=== PATIENT | male | born 1935 | race Caucasian/White ===

== ENCOUNTER 2020-12-22 09:22 | Inpatient (IN) ==
[2020-12-22] MEDS ORDERED: HYDROmorphone 0.5 MG/0.5 ML SYRINGE IV ONE ×2 (09:58→11:32)
[2020-12-22] MEDS ORDERED: 0.9 % SODIUM CHLORIDE 1,000 ML IV ONE (10:06)
--- NOTE | 2020-12-22 10:11 | Emergency Department Note ---
HPI General Chief complaint: Recheck/Abnormal Lab/Rx Stated complaint: nallely CRE and flank pain Time Seen by Provider: 12/22/20 09:56 Source: patient Mode of arrival: ambulatory Limitations: no limitations History of Present Illness HPI Narrative: Patient is an 85-year-old gentleman who arrives to the emergency department accompanied by his and daughter complaining of rib pain. The patient fell 2 days ago and landed on his right ribs. Ever since then, he has been having pain and tenderness over his right lower ribs. He did not think he suffered any significant injuries so he did not seek medical treatment at that time. Patient presented to outpatient surgery today for lithotripsy of a known left-sided kidney stone. Outpatient lab work revealed the patient to be in acute renal failure who is referred to the emergency department for further evaluation. He has been taking hydrocodone for treatment of his kidney stone pain with satisfactory pain control has not taken any [id number] analges ics to augment to this. He denies any fever or chills. Moving and taking a deep breath makes his right sided rib pain worse. Patient's history is somewhat limited due to his dementia Related Data Home Medications Medication Instructions Recorded Confirmed amlodipine 5 mg tablet 5 - 10 mg PO QDAY tab 10/22/19 12/22/20 cholecalciferol (vitamin D3) 50 50 mcg PO QDAY 10/22/19 12/22/20 mcg (2,000 unit) capsule clopidogrel 75 mg tablet 75 mg PO QDAY 10/22/19 12/22/20 coenzyme Q10 100 mg capsule 300 mg PO QDAY 10/22/19 12/22/20 gabapentin 100 mg capsule 300 mg PO TID 10/22/19 12/22/20 lorazepam 1 mg tablet 0.5 mg PO HS 10/22/19 12/22/20 memantine 10 mg tablet 10 mg PO BID 10/22/19 12/22/20 metoprolol tartrate 50 mg tablet 50 mg PO BID 10/22/19 12/22/20 rosuvastatin 10 mg tablet 40 mg PO HS 10/22/19 12/22/20 sertraline 50 mg tablet 50 mg PO QDAY 10/22/19 12/22/20 vitamin A-vitamin C-vit E-min 1 tab PO .COMPLEX 10/22/19 12/22/20 tablet acetaminophen [Acetaminophen Extra 1,000 mg PO Q6H PRN 12/20/20 12/22/20 Strength] aspirin 81 mg PO QDAY 12/20/20 12/22/20 donepezil 10 mg PO QDAY 12/20/20 12/22/20 isosorbide mononitrate 30 mg PO QAM 12/20/20 12/22/20 nitroglycerin 0.4 mg SUBLINGUAL Q5M PRN 12/20/20 12/22/20 lisinopril 5 mg PO DAILY 12/22/20 12/22/20 Allergies Allergy/AdvReac Type Severity Reaction Status Date / Time morphine Allergy Intermediate gi upset Verified 12/20/20 14:46 Review of Systems ROS ROS Narrative: Narrative: Limitations: ROS unobtainable due to patients medical condition [facility] Narrative Patient History Narrative: Narrative: Medical/Surgical/Family History All Active Problems (Updated 12/22/20 @ 14:58 by Matt Bird DO) Acute renal failure (Acute) Essential (primary) hypertension (Acute) Dementia (Acute) Right kidney stone (Acute) History of coronary artery disease (Acute) 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) Stage 3 acute kidney injury (Acute) Calculus of kidney (Acute) Senile dementia (Acute) Hypertension (Chronic) Heart disease (Chronic) Radiculopathy, lumbar region (Chronic) Low back pain (Chronic) Spinal stenosis, 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, 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, 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, lumbosacral region (Chronic) Medical History Calculus of kidney Degenerative disc disease, lumbar Facet arthropathy Heart disease Hypertension Low back pain Radiculopathy, lumbar region Senile dementia Spinal stenosis, lumbar region with neurogenic claudication Spondylosis without myelopathy or radiculopathy, lumbar region Spondylosis without myelopathy or radiculopathy, lumbosacral region Surgical History History of surgery RFTC Repeat Bilat L3-S1 w/sed 09/07/19 RFTC Bilat L3-S1 w/sed 07/23/2018 MBB #2 Bilat L3-S1 w/sed 06/25/2018 MBB #1 Bilat L3-S1 w/sed 05/22/2018 LESI #1 L4-5 w/o sed 01/08/2018 LESI #2 L4-5 w/o sed 09/24/2017 LESI #1 L4-5 w/o sed 04/25/2017 LESI #2 L4-5 w/o sed 10/08/2016 LESI #1 L4-5 w/o sed 05/16/2016 LESI #2 L4-5 w/o sed 12/13/2015 LESI #1 L4-5 w/o sed 08/25/2015 LESI #2 L4-5 w/o sed 03/01/2015 LESI #1 L4-5 w/o sed 01/13/15 Family History Other HTN (hypertension) Heart attack Kidney stone Social History Smoking Status: Former smoker Alcohol Intake Frequency: does not drink Substance Use: does not use Exam Narrative Narrative: Gen -patient is awake and alert and in no acute distress. HEENT -head is atraumatic. There is no conjunctival pallor or scleral icterus. CV -S1-S2 regular rate and rhythm. Peripheral pulses are palpable. Resp -breathing is nonlabored. Lungs are clear to auscultation bilaterally. There is no cyanosis. GI - Abdomen is soft and exquisitely tender to palpation in the right upper quadrant. There is no guarding or rebound tenderness. Derm -skin is warm and dry. MSK -present extremities are atraumatic. Psych -patient has appropriate affect. Neuro -patient answers questions appropriately with fluent speech. He provides simple and slightly confused but generally appropriate answers to questions patient moves all present extremities equally. General Limitations: no limitations Course Vital Signs Vital signs: Vital Signs Temperature 97.8 F 12/22/20 09:23 Pulse Rate 66 12/22/20 09:23 Respiratory Rate 16 12/22/20 09:23 Blood Pressure 145/71 12/22/20 09:23 Pulse Oximetry (%) 95 12/22/20 09:23 Temperature 97.8 F 12/22/20 09:23 Pulse Rate 86 12/22/20 13:21 Respiratory Rate 16 06/03/21 09:23 Blood Pressure 145/84 12/22/20 13:21 Pulse Oximetry (%) 97 12/22/20 13:21 MDM MDM Narrative Medical decision making narrative: Patient presents with acute renal failure complaining of right-sided lower rib pain following a fall. Labs remarkable for normal potassium and he has good respiratory status I do not think he would benefit from emergent hemodialysis. The recent trauma and rib pain obtain a CT scan that does not show any significant pathologic findings other than the known left-sided ureteral calculus. I discussed the test results and the need for admission and further monitoring of renal function with the patient and his family and they are agreeable. I discussed the patient's history examination and diagnostic findings with Dr. Renee from urology. He agrees with the plan for admission to hospitalist and also does not think that obstruction is the primary cause of the patient's renal failure. I discussed the patient's history examination and diagnostic findings with Dr. Johnson, who agrees with the plan of care and accepts admission. Critical care time I provided at least 15 minutes of critical care time. This was separate from any separately billable procedures. The patient was given IV fluids to treat his acute renal failure. The patient was closely monitored for response to treatment and stability of vital signs throughout their emergency department stay. Lab Data Labs: Lab Results 12/22/20 Range/Units 10:22 Urine Color Yellow Urine Appearance Hazy A (Clear) Urine pH 6.0 (5.0-9.0) Ur Specific [place] 1.011 (1.000-1.035) Urine Protein 30 A (Negative) mg/dL Urine Glucose (UA) Negative (Negative) mg/dL Urine Ketones Negative (Negative) mg/dL Urine Occult Blood 0.03 (Negative) mg/dL Urine Nitrate Negative (Negative) Urine Bilirubin Negative (Negative) mg/dL Urine Urobilinogen Negative mg/dL Ur Leukocyte Esterase Negative (Negative) /ug Urine RBC < 1 (0-3) /hpf Urine WBC 3 (0-4) /hpf Ur Squamous Epith Cells < 1 (0-4) /hpf Ur Transition Epith Cell < 1 (0-2) /hpf Urine Bacteria Few A (0) /hpf Urine Mucus Few A (None) /hpf Ur Culture Indicated? Yes ED POC Tests ED POC Tests: NISH - SARS Antigen Negative Discharge Plan Patient/Caregiver Discharge Instructions Pt seen by COMPUTER SYSTEMS SECURITY ANALYST/PA only: No Clinical Impression: Acute renal failure Patient Disposition: Xfer As Inpt ([facility]) Condition: Fair Follow up with: Karthik De Leno DO [Primary Care Provider] - Prescriptions: No Action amlodipine 5 mg tablet 5 - 10 mg PO QDAY RF: 0 clopidogrel 75 mg tablet 75 mg PO QDAY RF: 0 coenzyme Q10 [CoQ-10] 100 mg capsule 300 mg PO QDAY RF: 0 gabapentin 100 mg capsule 300 mg PO TID RF: 0 lorazepam 1 mg tablet 0.5 mg PO HS RF: 0 memantine 10 mg tablet 10 mg PO BID RF: 0 metoprolol tartrate 50 mg tablet 50 mg PO BID RF: 0 vitamin A-vitamin C-vit E-min Tablet 1 tab PO .COMPLEX RF: 0 rosuvastatin 10 mg tablet 40 mg PO HS RF: 0 sertraline 50 mg tablet 50 mg PO QDAY RF: 0 cholecalciferol (vitamin D3) 50 mcg (2,000 unit) capsule 50 mcg PO QDAY RF: 0 donepezil 10 mg Tablet 10 mg PO QDAY RF: 0 isosorbide mononitrate 30 mg Tablet Extended Release 24 Hr 30 mg PO QAM RF: 0 acetaminophen [Acetaminophen Extra Strength] 500 mg Tablet 1,000 mg PO Q6H PRN (Reason: Pain) RF: 0 nitroglycerin 0.4 mg Tablet, Sublingual 0.4 mg SUBLINGUAL Q5M PRN (Reason: Angina) RF: 0 aspirin 81 mg Tablet 81 mg PO QDAY RF: 0 lisinopril 5 mg tablet 5 mg PO DAILY RF: 0
--- NOTE | 2020-12-22 11:06 | Cat Scan Report ---
INDICATION: fall, right lower rib pain COMPARISON: None. TECHNIQUE: Axial images were obtained through the chest,abdomen and pelvis. Sagittally and coronally reformatted images. Intravenous contrast material was not administered FINDINGS: Chest CT: Lungs:Bilateral pulmonary parenchymal density most consistent with atelectasis. There is mild left lower lobe infiltrate which may be atelectasis or pneumonia. Mediastinum:No mediastinal hematoma. There is calcification of the thoracic aorta. No significant aortic dilatation. Heart:No significant cardiomegaly. No pericardial effusion. Severe coronary artery calcification. Previous coronary artery bypass procedure Pleura:There is no pneumothorax or hemothorax Axilla, supraclavicular regions, chest wall:No chest wall hematoma. No acute or focal abnormality. Musculoskeletal:No thoracic compression fracture. No rib fracture. Scapula and clavicles are negative. Sternum is negative except for previous sternotomy Abdomen/Pelvis: Liver:Liver is negative to the limits of noncontrast enhanced examination. No evidence for laceration. There are 2 low density lesions. There is a 2.4 cm low-density lesion in the left lobe of the liver. There is a 1.5 cm low-density lesion near the gallbladder fossa. These may be benign cysts. Clinical correlation recommended for history of primary malignancy. Gallbladder, bilary:No calcified gallstones. No gallbladder wall thickening or pericholecystic fluid. No dilated bile ducts Spleen:Spleen is negative. No splenic injury. No perisplenic hemorrhage. Pancreas:No pancreatic mass. No peripancreatic abnormality. No retroperitoneal abnormality Adrenal glands:15 mm left adrenal nodule, unchanged Kidneys, ureters, bladder:Right kidney is negative to the limits of noncontrast enhanced examination. No right hydronephrosis. No obstructing or nonobstructing calculi. No perinephric abnormality. There is a 7 mm calculus in the right renal pelvis. There is mild infiltration of surrounding fat. Infection is possible. There is no significant hydronephrosis. There is a 3.7 cm left upper pole mass consistent with cyst. There is a 2 cm exophytic mid pole mass consistent with cyst. No perinephric abnormality. No evidence for traumatic renal injury. Left kidney is unchanged There is no hydroureter. No bladder stone. No evidence for bladder rupture. Gastrointestinal: No detectable colonic mass. There is prominent fecal material in the rectum and distal sigmoid colon. There is no diverticulitis Small bowel is negative. No mechanical small bowel obstruction. Stomach and duodenum are within normal limits Appendix: The appendix is negative Vascular:There is extensive calcification of the abdominal aorta. No abdominal aortic aneurysm. There is a left renal stent. There is calcification at the origins of the celiac trunk and superior mesenteric artery. Lymphatic:No pathologic retroperitoneal or mesenteric adenopathy Mesentery, peritoneum:No free intraperitoneal fluid. No intra-abdominal abscess. There is no hemoperitoneum or pneumoperitoneum Reproductive:Prostate is not enlarged. There is a probable TURP defect Musculoskeletal:Compression deformity of the L3 vertebral body. This is unchanged since 12/16/2020. Sacrum and pelvis are negative. Hips are negative. No anterior abdominal wall or inguinal hernia. IMPRESSION: 1. Bilateral lower lobe pulmonary parenchymal densities may represent atelectasis although an left insular pneumonia is possible 2. Severe coronary artery calcification. Previous coronary artery bypass procedure 3. Low density lesions within the liver. These are unchanged since 12/16/2020 4. Small left adrenal nodule is stable 5. 7 mm calculus in the right renal pelvis. No significant hydronephrosis. This is unchanged. Probable left renal cysts, unchanged 6. Compression deformity of the L3 vertebral body, stable The exam was performed using radiation dose optimization techniques including, but not limited to, automated exposure control, adjustment of the mA and/or kV according to patient size and use of iterative reconstruction technique. Interpreted and Authenticated by: Rick Forte 12/22/20
[2020-12-22 11:21] LABS: Appearance,Urine HAZY (Clear); Bacteria,Urine FEW /hpf (0); Bilirubin,Urine Negative (Negative); Color,Urine YELLOW; Culture Indicated,Urine Yes; Glucose,Urine (UA) Negative (Negative); Ketones,Urine Negative (Negative); Leukocyte Esterase,Urine Negative /ug (Negative); Mucus,Urine FEW /hpf; Nitrate,Urine Negative (Negative); Protein,Urine 30 mg/dL (Negative); Specific Gravity,Urine 1.011 (1.000-1.035); Urine Blood 0.03 mg/dL (Negative); Urine RBC < 1 /hpf (0-3); Urine Squamous Epithelial Cell < 1 /hpf (0-4); Urine Transitional Epi Cells < 1 /hpf (0-2); Urine WBC 3 /hpf (0-4); Urobilinogen,Urine Negative
[2020-12-22] MEDS ORDERED: ACETAMINOPHEN 500 MG TABLET PO PRN (13:43)
[2020-12-22] MEDS ORDERED: oxyCODONE HCL 5 MG TABLET PO PRN (13:53)
[2020-12-22] MEDS ORDERED: morphine 4 MG/ML VIAL IV PRN (13:53)
[2020-12-22] MEDS ORDERED: ACETAMINOPHEN 325 MG TABLET PO PRN (13:53)
[2020-12-22] MEDS ORDERED: traZODone HCL 50 MG TABLET PO PRN ×2 (13:53→15:04)
[2020-12-22] MEDS ORDERED: ONDANSETRON 4 MG/2 ML VIAL IV PRN ×2 (13:53→15:04)
[2020-12-22] MEDS ORDERED: 0.9 % SODIUM CHLORIDE 1,000 ML IV SCH (14:00)
[2020-12-22] MEDS ORDERED: 0.9 % SODIUM CHLORIDE 10 ML SYRINGE IV SCH (14:00)
[2020-12-22] MEDS ORDERED: NITROGLYCERIN 0.4 MG TAB.SUBL SL PRN ×3 (14:08→19:27)
--- NOTE | 2020-12-22 14:10 | Internal Med History&Physical ---
HPI History of Present Illness Patient information: Note initiated : 12/22/20 at 2:02 pm Service Date, if different from initiated Date: [] Patient: Justin Simmons a 85 y/o M admitted on for High CRE, Flank Pain. Chief Complaint: [acute kidney injury] History of present illness: Mr. Simmons is a 85 year old M history of CAD status post CABG, chronic kidney disease stage IV, advanced dementia, presenting with acute kidney injury with elevated serum creatinine level. Patient baseline serum creatinine level was 2.3 a week ago but today it is 6.5. He was recently been diagnosed with an nonobstructive right kidney stone measuring 7 mm in diameter. He is scheduled to be seen by urologist and have lithotripsy procedures to have the stone removed but as part of the preoperative evaluations he was Found to have elevated serum creatinine level. As a result, the planned lithotripsy procedure was postponed and patient was instead asked to come to the ED for further evaluation and treatment. CT of the abdomen pelvis again showing diagnostic aspect if nature of the left kidney stone. UA suggests against the presence of urinary tract infections. Patient is not septic. Patient is complaining of the right lower rib cage pain secondary to a fall that happened 2 to 3 days ago. No rib fractures was identified. Constitutional Constitutional: Absent chills, excessive sweating, fatigue, fever(s) and weakness EENT Eyes: Absent blurry vision, change in vision, loss of vision and other visual disturbances Ears: Absent decreased hearing and tinnitus Nose, mouth and throat: Absent abnormal hearing, dry mouth, headache(s), nasal congestion and sore throat Cardiovascular Cardiovascular: Absent chest pain, chest pain at rest, edema, irregular heart rhythm and palpatations Respiratory Respiratory: Absent cough, dyspnea and wheezing Gastrointestinal Gastrointestinal: Absent abdominal pain, constipation, diarrhea, nausea and vomiting Musculoskeletal Musculoskeletal: Absent back pain, deformity, limited range of motion, muscle cramps, muscle weakness and numbness Additional comments: Right lower rib cage pain Integumentary Integumentary: Absent lesions, rash and wounds Neurological Neurological: Absent focal weakness, headache(s) and numbness Psychiatric Psychiatric: Absent anxiety, depression and hallucinations PFSH PFSH All Active Problems (Updated 12/22/20 @ 14:09 by Jas Johnson MD) Essential (primary) hypertension (Acute) Dementia (Acute) Right kidney stone (Acute) History of coronary artery disease (Acute) 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) Stage 3 acute kidney injury (Acute) Calculus of kidney (Acute) Senile dementia (Acute) Hypertension (Chronic) Heart disease (Chronic) Radiculopathy, lumbar region (Chronic) Low back pain (Chronic) Spinal stenosis, 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, 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, 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, lumbosacral region (Chronic) Medical History Calculus of kidney Degenerative disc disease, lumbar Facet arthropathy Heart disease Hypertension Low back pain Radiculopathy, lumbar region Senile dementia Spinal stenosis, lumbar region with neurogenic claudication Spondylosis without myelopathy or radiculopathy, lumbar region Spondylosis without myelopathy or radiculopathy, lumbosacral region Surgical History History of surgery RFTC Repeat Bilat L3-S1 w/sed 09/07/19 RFTC Bilat L3-S1 w/sed 07/23/2018 MBB #2 Bilat L3-S1 w/sed 06/25/2018 MBB #1 Bilat L3-S1 w/sed 05/22/2018 LESI #1 L4-5 w/o sed 01/08/2018 LESI #2 L4-5 w/o sed 09/24/2017 LESI #1 L4-5 w/o sed 04/25/2017 LESI #2 L4-5 w/o sed 10/08/2016 LESI #1 L4-5 w/o sed 05/16/2016 LESI #2 L4-5 w/o sed 12/13/2015 LESI #1 L4-5 w/o sed 08/25/2015 LESI #2 L4-5 w/o sed 03/01/2015 LESI #1 L4-5 w/o sed 01/13/15 Family History Other HTN (hypertension) Heart attack Kidney stone Social History smoking status: Former smoker alcohol intake frequency: does not drink substance use type: does not use MEDS/ALLERGIES Home Medications and Allergies Home Medications Medication Instructions Recorded Confirmed Type amlodipine 5 mg tablet 5 - 10 mg PO QDAY tab 10/22/19 12/22/20 History cholecalciferol (vitamin D3) 50 50 mcg PO QDAY 10/22/19 12/22/20 History mcg (2,000 unit) capsule clopidogrel 75 mg tablet 75 mg PO QDAY 10/22/19 12/22/20 History coenzyme Q10 100 mg capsule 300 mg PO QDAY 10/22/19 12/22/20 History gabapentin 100 mg capsule 300 mg PO TID 10/22/19 12/22/20 History lorazepam 1 mg tablet 0.5 mg PO HS 10/22/19 12/22/20 History memantine 10 mg tablet 10 mg PO BID 10/22/19 12/22/20 History metoprolol tartrate 50 mg tablet 50 mg PO BID 10/22/19 12/22/20 History rosuvastatin 10 mg tablet 40 mg PO HS 10/22/19 12/22/20 History sertraline 50 mg tablet 50 mg PO QDAY 10/22/19 12/22/20 History vitamin A-vitamin C-vit E-min 1 tab PO .COMPLEX 10/22/19 12/22/20 History tablet acetaminophen [Acetaminophen Extra 1,000 mg PO Q6H PRN 12/20/20 12/22/20 History Strength] aspirin 81 mg PO QDAY 12/20/20 12/22/20 History donepezil 10 mg PO QDAY 12/20/20 12/22/20 History isosorbide mononitrate 30 mg PO QAM 12/20/20 12/22/20 History nitroglycerin 0.4 mg SUBLINGUAL Q5M PRN 12/20/20 12/22/20 History lisinopril 5 mg PO DAILY 12/22/20 12/22/20 History Allergies Allergy/AdvReac Type Severity Reaction Status Date / Time morphine Allergy Intermediate gi upset Verified 12/20/20 14:46 EXAM Constitutional Vitals: Temp Pulse Resp BP Pulse Ox 36.6 C 86 16 145/84 97 12/22/20 09:23 12/22/20 13:21 12/22/20 09:23 12/22/20 13:21 12/22/20 13:21 General appearance: cooperative and no acute distress Head Head exam: Present atraumatic and normocephalic Eye Eye exam: Present EOMI and PERRL ENT ENT exam: Present mucous membranes moist, normal exam and normal external ear exam Neck Neck exam: Present normal inspection; Absent lymphadenopathy, tenderness and thyromegaly Respiratory Respiratory exam: Absent accessory muscle use, respiratory distress and wheezes Additional comments: right rib cage pain Cardiovascular Cardiovascular exam: Present normal rate and rhythm; Absent JVD GI/Abdominal GI/Abdominal exam: Present normal bowel sounds and soft; Absent organomegaly and tenderness Rectal Rectal exam: Present deferred Extremities Exam Extremities exam: Present full ROM, normal capillary refill and normal inspection; Absent tenderness Neurological Exam Neurological exam: Present alert and CN II-XII intact; Absent motor sensory deficit Additional comments: orientation X1 to person only Psychiatric Psychiatric exam: Present normal affect and normal mood; Absent anxious and depressed Skin Skin exam: Present dry and intact DATA Data Completed and Pending Labs: Labs from last 24 hours 12/22/20 10:22 Urine Color Yellow Urine Appearance Hazy A Urine pH 6.0 Ur Specific [place] 1.011 Urine Protein 30 A Urine Glucose (UA) Negative Urine Ketones Negative Urine Occult Blood 0.03 Urine Nitrate Negative Urine Bilirubin Negative Urine Urobilinogen Negative Ur Leukocyte Esterase Negative Urine RBC < 1 Urine WBC 3 Ur Squamous Epith Cells < 1 Ur Transition Epith Cell < 1 Urine Bacteria Few A Urine Mucus Few A Ur Culture Indicated? Yes A/P Assessment and plan (1) Stage 3 acute kidney injury: Status: Acute (2) CKD stage 4 secondary to hypertension: Status: Acute (3) History of coronary artery disease: Status: Acute (4) Right kidney stone: Status: Acute (5) Dementia: Status: Acute (6) Essential (primary) hypertension: Status: Acute Narrative A/P Narrative: 1. Stage 3 acute kidney injury with chronic kidney injury stage IV associated with essential HTN: Admit to inpatient med surg telemetry Consult gavino Prado. appreciated CT abdomen pelvis does not suggestive of kidney stone obstruction (such as hydroureter or hydronphrosis) UA does not suggest any UTI Avoid nephrotoxic agents such as ADY-i Lisinopril NS@150cc/hr Repeat CMP in the morning Continue Norvasc and Lopressor 2. Nonobstructive right kidney stone: Postpone lithotripsy procedure until CAMILO resolves 3. Advanced dementia: Continue Memantine Continue Donepezil 4. h/o CAD s/p CABG: Continue Aspirin Continue Plavix Continue Imdur Continue Lopressor Continue Crestor GI ppx: not currently indicated DVT ppx: SCDs Code status: Full Prognosis: guarded Disposition: inpatient med surg telemetry Time Spent With Patient Time: Total time spent is greater than 50% in coordination of care (as documented) at patient's floor/unit and/or counseling patient: Total time spent with greater than 50% in coordination of care (as documented) at patient's floor/unit and/or counseling patient:: 25 - 35 minutes
[2020-12-22] MEDS ORDERED: GABAPENTIN 300 MG CAPSULE PO SCH (15:00)
[2020-12-22] MEDS ORDERED: HYDROmorphone 0.5 MG/0.5 ML SYRINGE IV PRN (15:04)
[2020-12-22] MEDS: 0.9 % SODIUM CHLORIDE 1,000 ML IV SCH ×3 (16:03→22:57)
--- NOTE | 2020-12-22 17:37 | Nephrology Consult Note ---
HPI Data of Consult Primary Care Provider: Karthik De Leon Consult Narrative Patient Information: Note initiated : 12/22/20 at 5:33 pm Service Date, if different from initiated Date: [] Patient: Justin Simmons 85 y/o M admitted on 12/22/20 for High CRE, Flank Pain. 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 He was found to have a nonobstructing kidney stone and plans for for elective lithotripsy and stent deployment. Preop labs showed a marked elevation in his serum creatinine from a baseline of around 2-6, procedure was canceled and he was sent to the ER for evaluation and admission. No documented hypotension, but he has been on an ADY inhibitor as of late. Most importantly on 11/16/2020 he underwent left heart cath and PCI at [facility]. This included a radial artery approach, mention of an LV gram, and claimant to the OM 2 saphenous vein graft, or 80% stenoses in the LAD but a patent RIOS graft to the LAD. Also 80% to the first OM branch but again a patent saphenous vein graft. Recommendations were for lifelong Plavix aspirin statin and beta- blockers. There did not appear to be any contrast-induced ATN. Risk of atheroembolic embolization was minimized by the radial artery approach. A CT scan today did not show any evidence of hydronephrosis or obstruction. Need to make sure the patient was not exposed to any nonsteroidals as he is already on a low-dose of lisinopril. Renal ultrasound from [facility] in October 2018 revealed bilaterally echogenic kidneys simple left renal cysts and no hydronephrosis. Laboratory Tests 12/22/20 10:22 Urine Appearance Hazy A Urine pH 6.0 Ur Specific [place] 1.011 Urine Protein 30 A Urine Glucose (UA) Negative Urine Ketones Negative Urine Occult Blood 0.03 Urine Nitrate Negative Urine Bilirubin Negative Urine Urobilinogen Negative Ur Leukocyte Esterase Negative Urine RBC < 1 Urine WBC 3 Ur Squamous Epith Cells < 1 Ur Transition Epith Cell < 1 Urine Bacteria Few A Urine Mucus Few A 12/22/20 08:20 WBC 6.9 Hgb 10.5 L Hct 31.0 L Plt Count 186 Eos % (Auto) 0.3 12/20/20 12/22/20 15:10 08:20 POC Sodium 144 POC Potassium 4.1 POC Chloride 112 H POC Total CO2 20 L POC BUN 50 H Creatinine 6.0 H* POC Creatinine 6.5 H* POC Glucose 110 H 12/23/20 12/23/20 12/23/20 04:44 04:44 04:44 Urine Eosinophils TNP Ur Random Creatinine 28.2 L 28.7 L U Random Total Protein 82 Ur Random Sodium 100 Ur Random Potassium 12.9 Ur Random Chloride 91 Ur Random Uric Acid 12.0 Ur Random Calcium 3.5 Calcium/Creat Ratio 0.[address] 12/22/2020 Adrenal glands:15 mm left adrenal nodule, unchanged Kidneys, ureters, bladder:Right kidney is negative to the limits of noncontrast enhanced examination. No right hydronephrosis. No obstructing or nonobstructing calculi. No perinephric abnormality. There is a 7 mm calculus in the right renal pelvis. There is mild infiltration of surrounding fat. Infection is possible. There is no significant hydronephrosis. There is a 3.7 cm left upper pole mass consistent with cyst. There is a 2 cm exophytic mid pole mass consistent with cyst. No perinephric abnormality. No evidence for traumatic renal injury. Left kidney is unchanged There is no hydroureter. No bladder stone. No evidence for bladder rupture. Excerpt from CT on 12/16/2020: Kidneys, ureters, bladder:There is bilateral renal atrophy. There are 2 masses in the left kidney. Upper pole mass measures 3.1 cm. Mid pole mass measures 1.6 cm and is exophytic. These are probably cysts. There is a 6 mm calculus at the left ureteropelvic junction. There is mild left hydronephrosis. There is no hydroureter. No bladder stone Records from [facility] Vital Signs Temp Pulse Pulse Resp BP BP Pulse Ox 12/22/20 15:37 36.4 C 75 18 167/68 97 12/22/20 15:03 36.6 C 86 16 145/84 97 12/22/20 13:21 86 145/84 97 12/22/20 13:16 119 H 145/84 96 12/22/20 13:02 62 132/83 94 12/22/20 12:47 64 134/70 96 12/22/20 12:32 62 132/61 96 12/22/20 12:17 65 139/60 90 12/22/20 12:02 151/69 12/22/20 11:47 26 L 135/62 95 12/22/20 11:32 67 129/51 97 12/22/20 11:17 125/47 12/22/20 11:02 66 114/53 95 12/22/20 11:00 63 96 12/22/20 10:47 62 137/58 95 12/22/20 10:38 64 138/53 96 12/22/20 10:02 64 136/69 96 12/22/20 09:47 63 148/53 96 12/22/20 09:39 64 149/67 96 12/22/20 09:23 36.6 C 66 16 145/71 95 Intake and Output 12/22/20 12/22/20 12/22/20 05:59 13:59 21:59 Intake Total 1000 240 Output Total 300 Balance 1000 -60 Intake: IV 1000 Sodium Chloride 0.9% 1,000 ml @ 1000 Wide Open IV BOLUS ONE Rx#: [id number] Oral 240 Output: Void Amount 300 Other: Meal Dinner Percent of Meal Consumed 100% Weight 85.275 kg 85.275 kg Review of Systems ROS unobtainable: due to mental status Review of systems: C/O right back pain but stone looks like its on the left Not much to add to ROS that's not in the HPI Except he does not know and I cannot reach to ask about NSAIDS PFSH PFSH All Active Problems (Updated 12/23/20 @ 07:20 by Anand Nixon MD) Renal failure (ARF), acute on chronic (Acute) Left renal stone (Acute) 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) CAD (coronary artery disease) of bypass graft (Acute) Dementia (Acute) 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, 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, lumbar region (Chronic) Facet arthropathy (Chronic) Degenerative disc disease, lumbar (Chronic) Spinal stenosis, lumbar region with neurogenic claudication (Chronic) Low back pain (Chronic) Radiculopathy, lumbar region (Chronic) Heart disease (Chronic) Hypertension (Chronic) Senile dementia (Acute) Calculus of kidney (Acute) Stage 3 acute kidney injury (Acute) History of coronary artery disease (Acute) Right kidney stone (Acute) Essential (primary) hypertension (Acute) Acute renal failure (Acute) Medical History Calculus of kidney Degenerative disc disease, lumbar Facet arthropathy Heart disease Hypertension Low back pain Radiculopathy, lumbar region Senile dementia Spinal stenosis, lumbar region with neurogenic claudication Spondylosis without myelopathy or radiculopathy, lumbar region Spondylosis without myelopathy or radiculopathy, lumbosacral region Surgical History History of surgery RFTC Repeat Bilat L3-S1 w/sed 09/07/19 RFTC Bilat L3-S1 w/sed 07/23/2018 MBB #2 Bilat L3-S1 w/sed 06/25/2018 MBB #1 Bilat L3-S1 w/sed 05/22/2018 LESI #1 L4-5 w/o sed 01/08/2018 LESI #2 L4-5 w/o sed 09/24/2017 LESI #1 L4-5 w/o sed 04/25/2017 LESI #2 L4-5 w/o sed 10/08/2016 LESI #1 L4-5 w/o sed 05/16/2016 LESI #2 L4-5 w/o sed 12/13/2015 LESI #1 L4-5 w/o sed 08/25/2015 LESI #2 L4-5 w/o sed 03/01/2015 LESI #1 L4-5 w/o sed 01/13/15 Family History Other HTN (hypertension) Heart attack Kidney stone Social History smoking status: Former smoker alcohol intake frequency: does not drink substance use type: does not use MEDS/ALLERGIES Home Medications and Allergies Home Medications Medication Instructions Recorded Confirmed Type amlodipine 5 mg tablet 5 - 10 mg PO QDAY tab 10/22/19 12/22/20 History cholecalciferol (vitamin D3) 50 50 mcg PO QDAY 10/22/19 12/22/20 History mcg (2,000 unit) capsule clopidogrel 75 mg tablet 75 mg PO QDAY 10/22/19 12/22/20 History coenzyme Q10 100 mg capsule 300 mg PO QDAY 10/22/19 12/22/20 History gabapentin 100 mg capsule 300 mg PO TID 10/22/19 12/22/20 History lorazepam 1 mg tablet 0.5 mg PO HS 10/22/19 12/22/20 History memantine 10 mg tablet 10 mg PO BID 10/22/19 12/22/20 History metoprolol tartrate 50 mg tablet 50 mg PO BID 10/22/19 12/22/20 History rosuvastatin 10 mg tablet 40 mg PO HS 10/22/19 12/22/20 History sertraline 50 mg tablet 50 mg PO QDAY 10/22/19 12/22/20 History vitamin A-vitamin C-vit E-min 1 tab PO .COMPLEX 10/22/19 12/22/20 History tablet acetaminophen [Acetaminophen Extra 1,000 mg PO Q6H PRN 12/20/20 12/22/20 History Strength] aspirin 81 mg PO QDAY 12/20/20 12/22/20 History donepezil 10 mg PO QDAY 12/20/20 12/22/20 History isosorbide mononitrate 30 mg PO QAM 12/20/20 12/22/20 History nitroglycerin 0.4 mg SUBLINGUAL Q5M PRN 12/20/20 12/22/20 History lisinopril 5 mg PO DAILY 12/22/20 12/22/20 History Allergies Allergy/AdvReac Type Severity Reaction Status Date / Time morphine Allergy Intermediate gi upset Verified 12/20/20 14:46 Physical Examination Vital Signs Vital signs: Temp Pulse Resp BP Pulse Ox 36.4 C 75 18 167/68 97 12/22/20 15:37 12/22/20 15:37 12/22/20 15:37 12/22/20 15:37 12/22/20 15:37 General Appearance General appearance: obese, moderate distress, chronically ill and frail EENT EENT: ATNC, PERRL and hearing intact (bilateral hearing aids) Neck Neck: no JVD and no carotid bruit Respiratory Respiratory: kyphosis and rhonchi Cardiovascular Cardiology: no murmurs, no gallops, edema (trace), regular rhythm, rapid rhythm (8 beat mikey of wide complex tachycardia while I was seeing him...no sx), normal S1 and normal S2 Gastrointestinal Gastrointestinal: normoactive bowel sounds, no guarding and obese Integumentary Integumentary: warm and dry and hyperkeratosis Neurologic Neurologic: no focal deficit, no asterixis and CN 3-12 intact Musculoskeletal Musculoskeletal: no erythema, no cyanosis, no clubbing and prevertebral tenderness Psychiatric Psychiatric: mood/affect appropriate Additional Exam Additional exam: No atheroembolic lesions in toes or fingers Results Lab Results Result Diagrams: 12/23/20 05:36 12/23/20 05:36 A/P Assessment and plan (1) CKD stage 4 secondary to hypertension: Status: Acute Comment: CKD 4 due to HTN and vascular disease. Non-nephrotic proteinuria. Baseline SCr ~2.0 Left renal artery stent is present (2) Renal failure (ARF), acute on chronic: Status: Acute Comment: Tolerated LHC and IV contrast procedure 11/16/2020 at [facility] w/o change in GFR In late Apr, 2019 had an episode of acute renal failure with peak creatinine of 5.5 mg/dL that improved with hydration while hospitalized at [facility]. Current episode of acute renal failure has occurred over the span of 6 days with serum creatinine going from 1.9 to 6.0 mg/dL. Qualifiers: Acute renal failure type: unspecified Chronic kidney disease stage: stage 4 (severe) Qualified Code(s): N17.9 - Acute kidney failure, unspecified; N18.4 - Chronic kidney disease, stage 4 (severe) (3) Left renal stone: Status: Acute Comment: I do not see a right renal stone, just left stone with mild hydro Needs urologic intervention (4) Hypertensive renovascular disease: Status: Acute Comment: Left ANTON with stent Calcification of vasculature (5) CAD (coronary artery disease) of bypass graft: Status: Acute Comment: Recent PCI and VADIM in SVG at [facility] Qualifiers: [place] vs. transplanted heart: [place] heart Associated angina: unspecified whether angina present Qualified Code(s): I25.810 - Atherosclerosis of coronary artery bypass graft(s) without angina pectoris (6) Dementia: Status: Acute Comment: Hold aricept while we adjust B-mati dose due to risk of bradycardia Qualifiers: Dementia type: vascular dementia Dementia behavioral disturbance: without behavioral disturbance Qualified Code(s): F01.50 - Vascular dementia without behavioral disturbance Narrative A/P Narrative: 1. This is not IV contrast associated ATN. 2. Ultimately this is a combination of dehydration (similar to the episode in April 2019) worsened by ADY inhibitor therapy. 3. 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 CT scan or more appropriately would be to have the radiologist correct the CT interpretation. 5. Recommend proceeding with left ureteral stent placement to relieve the obstruction and continue hydration in this patient 6. He avoid any RAASI therapy, his lisinopril has already been discontinued, and do not attempt to get this patient on nonsteroidal anti-inflammatory 7. Speak to the any nonsteroidal use at home as he is too demented to give a history that can be relied upon, additionally CODE STATUS needs to be addressed Time Spent With Patient Time: Total time spent is greater than 50% in coordination of care (as documented) at patient's floor/unit and/or counseling patient: Total time spent with greater than 50% in coordination of care (as documented) at patient's floor/unit and/or counseling patient:: Greater than 35 minutes (60 min)
[2020-12-22] MEDS: oxyCODONE HCL 5 MG TABLET PO PRN (17:57)
[2020-12-22] MEDS: GABAPENTIN 300 MG CAPSULE PO SCH (20:53)
[2020-12-22] MEDS: LORazepam 0.5 MG TABLET PO SCH (20:53)
[2020-12-22] MEDS: MEMANTINE 10 MG TABLET PO SCH (20:53)
[2020-12-22] MEDS: DOCUSATE SODIUM 100 MG CAPSULE PO SCH (20:53)
[2020-12-22] MEDS: SENNOSIDES 1 TABLET PO SCH (20:53)
[2020-12-22] MEDS: ATORVASTATIN 40 MG TABLET PO SCH (20:53)
[2020-12-22] MEDS: METOPROLOL TARTRATE 50 MG TABLET PO SCH (20:54)
[2020-12-22] MEDS ORDERED: MEMANTINE 10 MG TABLET PO SCH (21:00)
[2020-12-22] MEDS ORDERED: amLODIPine 5 MG TABLET PO SCH (21:00)
[2020-12-22] MEDS ORDERED: DOCUSATE SODIUM 100 MG CAPSULE PO SCH (21:00)
[2020-12-22] MEDS ORDERED: SENNOSIDES 1 TABLET PO SCH (21:00)
[2020-12-22] MEDS ORDERED: ROSUVASTATIN 10 MG TABLET PO SCH (21:00)
[2020-12-22] MEDS ORDERED: METOPROLOL TARTRATE 50 MG TABLET PO SCH (21:00)
[2020-12-22] MEDS ORDERED: LORazepam 0.5 MG TABLET PO SCH (21:00)
[2020-12-22] MEDS: 0.9 % SODIUM CHLORIDE 10 ML SYRINGE IV SCH (22:57)
[2020-12-23] MEDS: 0.9 % SODIUM CHLORIDE 1,000 ML IV SCH ×3 (05:31→19:03)
[2020-12-23] MEDS: 0.9 % SODIUM CHLORIDE 10 ML SYRINGE IV SCH ×3 (05:32→23:11)
[2020-12-23 06:02] LABS: Chloride,Urine Random 91 mmol/L (110-250); Potassium,Urine Random 12.9 mmol/L
[2020-12-23 06:03] LABS: Sodium, Urine Random 100 mmol/L
[2020-12-23 06:12] LABS: Calcium,Urine Random 3.5 mg/dL; Calcium/Creatinine Ratio,Urine 0.12 mg/mg (0.00-0.20); Creatinine,Urine Random 28.2 mg/dL (39.0-259.0)
[2020-12-23 07:31] LABS: Basophils # (Auto) 0.01 K/mcL (0.00-0.20); Basophils % (Auto) 0.1 % (0.0-2.0); Eosinophils # (Auto) 0.01 K/mcL (0.00-0.70); Eosinophils % (Auto) 0.1 % (0.0-7.0); Hematocrit 33.7 % (41.0-55.0); Lymphocytes # (Auto) 0.94 K/mcL (1.50-4.80); Lymphocytes % (Auto) 11.8 % (15.0-49.0); Mean Cell Volume 107.7 fL (80.0-100.0); Mean Corpuscular HGB Conc 32.6 g/dL (31.0-36.0); Mean Platelet Volume 10.1 fL (7.4-10.4); Monocytes # (Auto) 0.78 K/mcL (0.10-0.90); Monocytes % (Auto) 9.8 % (1.0-12.0); Neutrophils % (Auto) 78.2 % (38.0-78.0); Platelet Count 191 K/mcL (140-440); RBC 3.13 M/mcL (4.50-5.90)
--- NOTE | 2020-12-23 07:58 | General Surgery Consult Note ---
HPI Data of Consult Primary Care Provider: Karthik De Leon Consult Narrative Patient Information: Note initiated : 12/23/20 at 7:50 am Service Date, if different from initiated Date: [] Patient: Justin Simmons 85 y/o M admitted on 12/22/20 for High CRE, Flank Pain. Chief Complaint: [] This 85-year-old white male with dementia, hypertension and COPD was found to have a nonobstructing stone in the right kidney which apparently was asymptomatic. He was scheduled for ureteroscopic laser lithotripsy on December 22. On his admitting paperwork his creatinine had gone from the usual range from 1-3 up to 6 on December 20 and on December 22 the creatinine was 6.5 with a potassium of 3.9. He did not appear to be in any discomfort at the time. With a nonobstructing stone that was asymptomatic and a rapidly rising creatinine, the procedure was canceled and he was admitted for renal evaluation. Since there is no obstruction and no apparent discomfort, the stone may be something that would best be dealt with initially by observation only. We can continue to follow the stone size on KUB and proceed with intervention should he become symptomatic or if the stone continues to grow. 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, lumbar (Chronic) Spinal stenosis, lumbar region with neurogenic claudication (Chronic) Low back pain (Chronic) Radiculopathy, lumbar region (Chronic) Heart disease (Chronic) Hypertension (Chronic) Senile dementia (Acute) Calculus of kidney (Acute) Stage 3 acute kidney injury (Acute) 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) History of coronary artery disease (Acute) Right kidney stone (Acute) Dementia (Acute) Essential (primary) hypertension (Acute) Acute renal failure (Acute) Renal failure (ARF), acute on chronic (Acute) Left renal stone (Acute) Hypertensive renovascular disease (Acute) CAD (coronary artery disease) of bypass graft (Acute) Medical History Calculus of kidney Degenerative disc disease, lumbar Facet arthropathy Heart disease Hypertension Low back pain Radiculopathy, lumbar region Senile dementia Spinal stenosis, lumbar region with neurogenic claudication Spondylosis without myelopathy or radiculopathy, lumbar region Spondylosis without myelopathy or radiculopathy, lumbosacral region Surgical History History of surgery RFTC Repeat Bilat L3-S1 w/sed 09/07/19 RFTC Bilat L3-S1 w/sed 07/23/2018 MBB #2 Bilat L3-S1 w/sed 06/25/2018 MBB #1 Bilat L3-S1 w/sed 05/22/2018 LESI #1 L4-5 w/o sed 01/08/2018 LESI #2 L4-5 w/o sed 09/24/2017 LESI #1 L4-5 w/o sed 04/25/2017 LESI #2 L4-5 w/o sed 10/08/2016 LESI #1 L4-5 w/o sed 05/16/2016 LESI #2 L4-5 w/o sed 12/13/2015 LESI #1 L4-5 w/o sed 08/25/2015 LESI #2 L4-5 w/o sed 03/01/2015 LESI #1 L4-5 w/o sed 01/13/15 Family History Other HTN (hypertension) Heart attack Kidney stone Social History smoking status: Former smoker alcohol intake frequency: does not drink substance use type: does not use MEDS/ALLERGIES Home Medications and Allergies Home Medications Medication Instructions Recorded Confirmed Type amlodipine 5 mg tablet 5 - 10 mg PO QDAY tab 10/22/19 12/22/20 History cholecalciferol (vitamin D3) 50 50 mcg PO QDAY 10/22/19 12/22/20 History mcg (2,000 unit) capsule clopidogrel 75 mg tablet 75 mg PO QDAY 10/22/19 12/22/20 History coenzyme Q10 100 mg capsule 300 mg PO QDAY 10/22/19 12/22/20 History gabapentin 100 mg capsule 300 mg PO TID 10/22/19 12/22/20 History lorazepam 1 mg tablet 0.5 mg PO HS 10/22/19 12/22/20 History memantine 10 mg tablet 10 mg PO BID 10/22/19 12/22/20 History metoprolol tartrate 50 mg tablet 50 mg PO BID 10/22/19 12/22/20 History rosuvastatin 10 mg tablet 40 mg PO HS 10/22/19 12/22/20 History sertraline 50 mg tablet 50 mg PO QDAY 10/22/19 12/22/20 History vitamin A-vitamin C-vit E-min 1 tab PO .COMPLEX 10/22/19 12/22/20 History tablet acetaminophen [Acetaminophen Extra 1,000 mg PO Q6H PRN 12/20/20 12/22/20 History Strength] aspirin 81 mg PO QDAY 12/20/20 12/22/20 History donepezil 10 mg PO QDAY 12/20/20 12/22/20 History isosorbide mononitrate 30 mg PO QAM 12/20/20 12/22/20 History nitroglycerin 0.4 mg SUBLINGUAL Q5M PRN 12/20/20 12/22/20 History lisinopril 5 mg PO DAILY 12/22/20 12/22/20 History Allergies Allergy/AdvReac Type Severity Reaction Status Date / Time morphine Allergy Intermediate gi upset Verified 12/20/20 14:46 Physical Examination Vital Signs Vital signs: Temp Pulse Resp BP Pulse Ox 97.7 F 68 16 173/83 94 12/23/20 06:42 12/23/20 06:42 12/23/20 06:42 12/23/20 06:42 12/23/20 06:42 General physical appearance General physical exam: no distress ENT ENT exam: normal pinna and normal nares Head Head exam IM: Present normocephalic Cardiovascular Cardiovascular exam IM: Present normal rate and rhythm Respiratory Respiratory exam: normal respiratory effort Abdomen Abdomen: Present soft Integumentary Integumentary: Present no rash Results Labs Result diagrams: 12/23/20 05:36 12/23/20 05:36 Labs: Abnormal lab results 12/22/20 12/22/20 12/23/20 Range/Units 10:22 19:52 02:40 RBC (4.50-5.90) M/mcL Hgb (13.5-16.5) g/dL Hct (41.0-55.0) % MCV (80.0-100.0) fL MCH (26.0-34.0) pg Neut % (Auto) (38.0-78.0) % Lymph % (Auto) (15.0-49.0) % Lymph # (Auto) (1.50-4.80) K/mcL Troponin T 0.04 H* 0.03 H (<0.03) ng/mL Urine Appearance Hazy A (Clear) Urine Protein 30 A (Negative) mg/dL Urine Bacteria Few A (0) /hpf Urine Mucus Few A (None) /hpf Ur Random Creatinine (39.0-259.0) mg/dL Ur Random Chloride (110-250) mmol/L Ur Random Uric Acid (37.0-92.0) mg/dL 12/23/20 12/23/20 12/23/20 Range/Units 04:44 04:44 04:44 RBC (4.50-5.90) M/mcL Hgb (13.5-16.5) g/dL Hct (41.0-55.0) % MCV (80.0-100.0) fL MCH (26.0-34.0) pg Neut % (Auto) (38.0-78.0) % Lymph % (Auto) (15.0-49.0) % Lymph # (Auto) (1.50-4.80) K/mcL Troponin T (<0.03) ng/mL Urine Appearance (Clear) Urine Protein (Negative) mg/dL Urine Bacteria (0) /hpf Urine Mucus (None) /hpf Ur Random Creatinine 28.2 L 28.7 L (39.0-259.0) mg/dL Ur Random Chloride 91 L (110-250) mmol/L Ur Random Uric Acid (37.0-92.0) mg/dL 12/23/20 12/23/20 Range/Units 04:44 05:36 RBC 3.13 L (4.50-5.90) M/mcL Hgb 11.0 L (13.5-16.5) g/dL Hct 33.7 L (41.0-55.0) % MCV 107.7 H (80.0-100.0) fL MCH 35.1 H (26.0-34.0) pg Neut % (Auto) 78.2 H (38.0-78.0) % Lymph % (Auto) 11.8 L (15.0-49.0) % Lymph # (Auto) 0.94 L (1.50-4.80) K/mcL Troponin T (<0.03) ng/mL Urine Appearance (Clear) Urine Protein (Negative) mg/dL Urine Bacteria (0) /hpf Urine Mucus (None) /hpf Ur Random Creatinine (39.0-259.0) mg/dL Ur Random Chloride (110-250) mmol/L Ur Random Uric Acid 12.0 L (37.0-92.0) mg/dL All other labs normal. A/P Assessment and plan (1) Right kidney stone: Status: Acute (2) Acute renal failure: Status: Acute Qualifiers: Acute renal failure type: unspecified Qualified Code(s): N17.9 - Acute kidney failure, unspecified Narrative A/P Narrative: Appreciate nephrology consult. We will delay definitive intervention of the stone until renal function stabilized and consider observation only if he remains asymptomatic without obstruction. Will follow up with KUB in the clinic within the next 2 to 4 weeks Time Spent With Patient Time: Total time spent is greater than 50% in coordination of care (as documented) at patient's floor/unit and/or counseling patient:
[2020-12-23 08:14] LABS: ALT/SGPT 10 U/L (<40); AST/SGOT 12 U/L (<40); Albumin 3.3 gm/dL (3.2-5.2); Albumin/Globulin Ratio 0.8 (1.0-2.3); Alkaline Phosphatase 51 U/L (39-117); Bilirubin,Total 0.2 mg/dL (0.1-1.0); Blood Urea Nitrogen 46 mg/dL (8-23); Calcium 8.6 mg/dL (8.6-10.4); Carbon Dioxide 17 mmol/L (22-30); Chloride 115 mmol/L (96-108); Globulin 4.1 gm/dL (2.2-3.7); Glomerular Filtration Rate 11; Glucose 108 mg/dL (70-105)
[2020-12-23] MEDS: METOPROLOL TARTRATE 50 MG TABLET PO SCH ×2 (08:14→20:25)
[2020-12-23] MEDS: VIT A,C & E/LUTEIN/MINERALS TABLET PO SCH (08:14)
[2020-12-23] MEDS: MEMANTINE 10 MG TABLET PO SCH ×2 (08:14→20:24)
[2020-12-23] MEDS: VITAMIN D3 1,000 UNIT TABLET PO SCH (08:14)
[2020-12-23] MEDS: GABAPENTIN 300 MG CAPSULE PO SCH ×3 (08:14→20:24)
[2020-12-23] MEDS: ISOSORBIDE MONONITRATE 30 MG TAB.XL.24H PO SCH (08:15)
[2020-12-23] MEDS: SERTRALINE 50 MG TABLET PO SCH (08:15)
[2020-12-23] MEDS: amLODIPine 10 MG TABLET PO SCH (08:15)
[2020-12-23] MEDS: ASPIRIN 81 MG TAB.CHEW PO SCH (08:15)
[2020-12-23] MEDS: DOCUSATE SODIUM 100 MG CAPSULE PO SCH ×2 (08:15→20:25)
[2020-12-23] MEDS: CLOPIDOGREL 75 MG TABLET PO SCH (08:15)
--- NOTE | 2020-12-23 08:42 | Nephrology Progress Note ---
SUBJECTIVE Subjective Patient information: Note initiated : 12/23/20 at 8:36 am Service Date, if different from initiated Date: [] Patient: Justin Simmons 85 y/o M admitted on 12/22/20 for High CRE, Flank Pain. Chief Complaint: [ARF superimposed on CKD 4] As outlined in yesterday's note this patient has a baseline creatinine of around 2 as recently as the end of November 2020. He complained of right back pain had a CT that showed a left UPJ kidney stone with mild obstruction on 12/17/2020. He was set up for stent deployment and laser treatment when his preoperative creatinine was now found to be 6 and he was admitted to the hospital. Added to the confusion a repeat CT scan done on 12/22/2020 now reported a right nonobstructing kidney stone and reported that the left kidney was essentially normal. A personal review of the radiographic findings would disagree with the radiology report I see a left ureteral stone with surrounding perinephric stranding and hydronephrosis as well as previous renal artery stenting of the left renal artery. The patient had an episode of acute renal failure that responded to just IV fluids back in April 2019 at [facility]. Furthermore he just underwent left heart catheter PCI deployment at the end of October 2020 again at [facility] no change in his GFR. At time he was started on an ADY inhibitor and now has a marked elevation in his serum creatinine. Patient is unable to participate in a meaningful history so I cannot tell if he is on nonsteroidals for his back pain is well and I was unable to reach his last night. Unless his ADY inhibitor was discontinued and IV hydration was started overnight. I have asked the radio logist this morning to relook at the most recent CT and addend his report if appropriate. Otherwise, one would have to suppose that previous seen left kidney stone had passed but again to my eye that does not appear to be the case. Vital Signs Temp Pulse Pulse Resp BP BP Pulse Ox 12/23/20 06:42 36.5 C 68 16 173/83 94 12/23/20 04:00 36.4 C 69 18 175/81 96 12/23/20 02:00 65 159/59 92 12/23/20 01:45 62 158/77 90 12/23/20 01:30 65 164/76 93 12/22/20 23:37 36.6 C 66 18 138/65 93 12/22/20 19:06 36.6 C 72 20 127/55 94 12/22/20 15:37 36.4 C 75 18 167/68 97 12/22/20 15:03 36.6 C 86 16 145/84 97 12/22/20 13:21 86 145/84 97 12/22/20 13:16 119 H 145/84 96 12/22/20 13:02 62 132/83 94 12/22/20 12:47 64 134/70 96 12/22/20 12:32 62 132/61 96 12/22/20 12:17 65 139/60 90 12/22/20 12:02 151/69 12/22/20 11:47 26 L 135/62 95 12/22/20 11:32 67 129/51 97 12/22/20 11:17 125/47 12/22/20 11:02 66 114/53 95 12/22/20 11:00 63 96 12/22/20 10:47 62 137/58 95 12/22/20 10:38 64 138/53 96 12/22/20 10:02 64 136/69 96 12/22/20 09:47 63 148/53 96 12/22/20 09:39 64 149/67 96 12/22/20 09:23 36.6 C 66 16 145/71 95 Intake and Output 12/22/20 12/23/20 12/23/20 21:59 05:59 13:59 Intake Total 240 2000 Output Total 300 1900 Balance -60 100 Intake: IV 2000 Sodium Chloride 0.9% 1,000 ml @ 2000 150 mls/hr IV .Q6H40M [facility] Rx#: [id number] Oral 240 Output: Urine Catheter Amount 1300 Void Amount 300 600 Other: Meal Dinner Percent of Meal Consumed 100% Urine Appearance Clear Urine Color Pale Weight 86.772 kg Laboratory Tests 12/23/20 05:36 Sodium 142 Potassium 5.2 H Chloride 115 H Carbon Dioxide 17 L Anion Gap 10.0 BUN 46 H Creatinine 4.5 H GFR Calculation 11 Glucose 108 H Calcium 8.6 AST 12 ALT 10 Alkaline Phosphatase 51 Albumin 3.3 Globulin 4.1 H Albumin/Globulin Ratio 0.8 L Films reviewed with urology. All made to CT to ask for relooked an addendum of the CT report dated 12/22/2020 Constitutional Vitals: Vital Signs Temp Pulse Resp BP Pulse Ox 36.5 C 68 16 173/83 94 12/23/20 06:42 12/23/20 06:42 12/23/20 06:42 12/23/20 06:42 12/23/20 06:42 Period Temp Pulse Resp BP Sys/Peña Pulse Ox Last 24 Hr 36.4 C-36.6 C 26-119 16-20 114-175/47-84 90-97 Intake and Output 12/22/20 12/23/20 12/23/20 21:59 05:59 13:59 Intake Total 240 2000 Output Total 300 1900 Balance -60 100 Weight 86.772 kg Intake & Output: Intake & Output 12/22/20 12/23/20 12/23/20 21:59 05:59 13:59 Intake Total 240 2000 Output Total 300 1900 Balance -60 100 Weight 86.772 kg Intake: IV 2000 Sodium Chloride 0.9% 1,000 ml @ 2000 150 mls/hr IV .Q6H40M [facility] Rx#: [id number] Oral 240 Output: Urine Catheter Amount 1300 Void Amount 300 600 Other: Meal Dinner Percent of Meal Consumed 100% Urine Appearance Clear Urine Color Pale General appearance: moderate distress and obese Exam: General Appearance General appearance: obese, moderate distress, chronically ill and frail EENT EENT: ATNC, PERRL and hearing intact (bilateral hearing aids) Neck Neck: no JVD and no carotid bruit Respiratory Respiratory: kyphosis and rhonchi Cardiovascular Cardiology: no murmurs, no gallops, edema (trace), regular rhythm, rapid rhythm (8 beat mikey of wide complex tachycardia while I was seeing him...no sx), normal S1 and normal S2 Gastrointestinal Gastrointestinal: normoactive bowel sounds, no guarding and obese Integumentary Integumentary: warm and dry and hyperkeratosis Neurologic Neurologic: no focal deficit, no asterixis and CN 3-12 intact Musculoskeletal Musculoskeletal: no erythema, no cyanosis, no clubbing and prevertebral tenderness Psychiatric Psychiatric: mood/affect appropriate Additional Exam Additional exam: No atheroembolic lesions in toes or fingers A/P Narrative A/P Narrative: Assessment and plan (1) CKD stage 4 secondary to hypertension: (2) Renal failure (ARF), acute on chronic: (3) Left renal stone: (4) Hypertensive renovascular disease: (5) 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 This is not IV contrast associated ATN. 2. Ultimately this is a combination of dehydration (similar to the episode in April 2019) worsened by ADY inhibitor therapy. 3. Patient has nephrolithiasis with left UPJ stone which was evident on the CT of 12/16/2020 and still present on the 12/22/2020 CT but the interpretation seems to be an error as I see no right sided stone 4. CT scan or more appropriately would be to have the radiologist correct the CT interpretation. 5. Recommend proceeding with left ureteral stent placement to relieve the obstruction and continue hydration in this patient 6. He is avoid any RAASI therapy, his lisinopril has already been discontinued, and do not attempt to get this patient on nonsteroidal anti-inflammatory 7. Speak to the to see if there has been any nonsteroidal use at home as he is too demented to give a history that can be relied upon, additionally CODE STATUS needs to be addressed 8. Since this patient had PTCA and VADIM deployment 1 month ago, I favor just placing a stent and keeping him on Plavix for 3 months total at which time we can do some sort of definitive treatment on his kidney stone while stopping the Plavix for a few days. Time Spent With Patient Time: Total time spent is greater than 50% in coordination of care (as documented) at patient's floor/unit and/or counseling patient: Time Spent With Patient Time: Total time spent is greater than 50% in coordination of care (as documented) at patient's floor/unit and/or counseling patient:
[2020-12-23] MEDS: TAMSULOSIN 0.4 MG CAPSULE PO SCH ×2 (08:52→20:24)
[2020-12-23] MEDS: oxyCODONE HCL 5 MG TABLET PO PRN ×3 (08:52→17:35)
[2020-12-23] MEDS ORDERED: CLOPIDOGREL 75 MG TABLET PO SCH (09:00)
[2020-12-23] MEDS ORDERED: ASPIRIN 81 MG TAB.CHEW PO SCH (09:00)
[2020-12-23] MEDS ORDERED: COENZYME Q10 300 MG PO SCH ×2 (09:00)
[2020-12-23] MEDS ORDERED: DONEPEZIL 10 MG TABLET PO SCH ×2 (09:00)
[2020-12-23] MEDS ORDERED: SERTRALINE 50 MG TABLET PO SCH (09:00)
[2020-12-23] MEDS ORDERED: VITAMIN D3 1,000 UNIT TABLET PO SCH (09:00)
[2020-12-23] MEDS ORDERED: ISOSORBIDE MONONITRATE 30 MG TAB.XL.24H PO SCH (09:00)
[2020-12-23] MEDS ORDERED: amLODIPine 5 MG TABLET PO SCH (09:00)
--- NOTE | 2020-12-23 12:57 | EKG ---
[facility] Test Date: 2020-12-22 Pat Name: Justin Simmons Department: [facility] Room: 112 Gender: Male [employer]: : [phone] Requested By: Jas Johnson Order Number: [id number] Reading MD: Ian Gordon M.D. Measurements Intervals [place] Rate: 71 P: 28 MD: 236 QRS: -44 QRSD: 106 T: 80 QT: 420 QTc: 457 Interpretive Statements SINUS RHYTHM MULTIFORM VENTRICULAR PREMATURE COMPLEXES FIRST DEGREE AV BLOCK PROBABLE LEFT ATRIAL ABNORMALITY LEFT ANTERIOR FASCICULAR BLOCK Since previous ECG of 12-20-2020, PVC's, LASB Electronically Signed On 12-23-2020 12:56:53 PDT by Ian Gordon M.D. /[facility] [place]/[email or web address]/[id number]
--- NOTE | 2020-12-23 13:14 | Internal Med Progress Note ---
SUBJECTIVE Subjective Patient information: Note initiated : 12/23/20 at 1:09 pm Service Date, if different from initiated Date: [] Patient: Justin Simmons a 85 y/o M admitted on 12/22/20 for High CRE, Flank Pain. Chief Complaint: [] History of present illness: Mr. Simmons is a 85 year old M history of CAD status post CABG, chronic kidney disease stage IV, advanced dementia, presenting with acute kidney injury with elevated serum creatinine level. Patient baseline serum creatinine level was 2.3 a week ago but today it is 6.5. He was recently been diagnosed with bilateral kidney stones (6mm diameter in left ureteropelvic junction, and 7mm diameter in right renal pelvis. He is scheduled to be seen by urologist and have lithotripsy procedures to have the stone removed but as part of the preoperative evaluations he was Found to have elevated serum creatinine level. As a result, the planned lithotripsy procedure was postponed and patient was instead asked to come to the ED for further evaluation and treatment. CT of the abdomen pelvis again showing those kidney stones. UA suggests against the presence of urinary tract infections. Patient is not septic. Patient is complaining of the right lower rib cage pain secondary to a fall that happened 2 to 3 days ago. No rib fractures was identified. Constitutional Vitals: Vital Signs Temp Pulse Resp BP Pulse Ox 36.7 C 59 L 18 142/69 95 12/23/20 12:00 12/23/20 12:00 12/23/20 12:00 12/23/20 12:00 12/23/20 12:00 Period Temp Pulse Resp BP Sys/Peña Pulse Ox Last 24 Hr 36.4 C-36.7 C 59-119 16-20 127-175/55-84 90-97 Intake and Output 12/22/20 12/23/20 12/23/20 21:59 05:59 13:59 Intake Total 240 1999 1320 Output Total 300 1900 Balance -60 100 1320 Weight 86.772 kg Intake & Output: Intake & Output 12/22/20 12/23/20 12/23/20 21:59 05:59 13:59 Intake Total 240 1999 1320 Output Total 300 1900 Balance -60 100 1320 Weight 86.772 kg Intake: IV 2000 1000 Sodium Chloride 0.9% 1,000 ml @ 2000 1000 150 mls/hr IV .Q6H40M [facility] Rx#: [id number] Oral 240 320 Output: Urine Catheter Amount 1300 Void Amount 300 600 Other: Meal Dinner Lunch Percent of Meal Consumed 100% 75% Urine Appearance Clear Urine Color Pale General appearance: cooperative and no acute distress Exam: General Appearance General appearance: obese, moderate distress, chronically ill and frail EENT EENT: ATNC, PERRL and hearing intact (bilateral hearing aids) Neck Neck: no JVD and no carotid bruit Respiratory Respiratory: kyphosis and rhonchi Cardiovascular Cardiology: no murmurs, no gallops, edema (trace), regular rhythm, rapid rhythm (8 beat mikey of wide complex tachycardia while I was seeing him...no sx), normal S1 and normal S2 Gastrointestinal Gastrointestinal: normoactive bowel sounds, no guarding and obese Integumentary Integumentary: warm and dry and hyperkeratosis Neurologic Neurologic: no focal deficit, no asterixis and CN 3-12 intact Musculoskeletal Musculoskeletal: no erythema, no cyanosis, no clubbing and prevertebral tenderness Psychiatric Psychiatric: mood/affect appropriate Additional Exam Additional exam: No atheroembolic lesions in toes or fingers Head Head exam: Present atraumatic and normocephalic Additional comments: Bilateral hard of hearing Eye Eye exam: Present EOMI and PERRL ENT ENT exam: Present mucous membranes moist, normal exam and normal external ear exam Neck Neck exam: Present normal inspection; Absent lymphadenopathy, tenderness and thyromegaly Respiratory Respiratory exam: Absent accessory muscle use, respiratory distress and wheezes Cardiovascular Cardiovascular exam: Present normal rate and rhythm; Absent JVD GI/Abdominal GI/Abdominal exam: Present normal bowel sounds and soft; Absent organomegaly and tenderness Rectal Rectal exam: Present deferred Extremities Exam Extremities exam: Present full ROM, normal capillary refill and normal inspection; Absent tenderness Neurological Exam Neurological exam: Present alert, CN II-XII intact and oriented X3; Absent motor sensory deficit Psychiatric Psychiatric exam: Present normal affect and normal mood; Absent anxious and depressed Skin Skin exam: Present dry and intact OBJ DATA Labs CBC & Chem 7: 12/23/20 05:36 12/23/20 05:36 Labs: Abnormal Lab Results 12/23/20 12/23/20 12/23/20 08:20 05:36 05:36 RBC 3.13 L Hgb 11.0 L Hct 33.7 L MCV 107.7 H MCH 35.1 H Neut % (Auto) 78.2 H Lymph % (Auto) 11.8 L Lymph # (Auto) 0.94 L Potassium 5.2 H Chloride 115 H Carbon Dioxide 17 L BUN 46 H Creatinine 4.5 H Glucose 108 H Troponin T 0.03 H Globulin 4.1 H Albumin/Globulin Ratio 0.8 L Urine Appearance Urine Protein Urine Bacteria Urine Mucus Ur Random Creatinine Ur Random Chloride Ur Random Uric Acid 12/23/20 12/23/20 12/23/20 04:44 04:44 04:44 RBC Hgb Hct MCV MCH Neut % (Auto) Lymph % (Auto) Lymph # (Auto) Potassium Chloride Carbon Dioxide BUN Creatinine Glucose Troponin T Globulin Albumin/Globulin Ratio Urine Appearance Urine Protein Urine Bacteria Urine Mucus Ur Random Creatinine 28.7 L Ur Random Chloride 91 L Ur Random Uric Acid 12.0 L 12/23/20 12/23/20 12/22/20 04:44 02:40 19:52 RBC Hgb Hct MCV MCH Neut % (Auto) Lymph % (Auto) Lymph # (Auto) Potassium Chloride Carbon Dioxide BUN Creatinine Glucose Troponin T 0.03 H 0.04 H* Globulin Albumin/Globulin Ratio Urine Appearance Urine Protein Urine Bacteria Urine Mucus Ur Random Creatinine 28.2 L Ur Random Chloride Ur Random Uric Acid 12/22/20 10:22 RBC Hgb Hct MCV MCH Neut % (Auto) Lymph % (Auto) Lymph # (Auto) Potassium Chloride Carbon Dioxide BUN Creatinine Glucose Troponin T Globulin Albumin/Globulin Ratio Urine Appearance Hazy A Urine Protein 30 A Urine Bacteria Few A Urine Mucus Few A Ur Random Creatinine Ur Random Chloride Ur Random Uric Acid Meds: Medications Acetaminophen (Acetaminophen 325 Mg Tablet) 650 mg PO Q6HP PRN; Protocol PRN Reason: Per Pain Protocol/Fever > 101 Amlodipine Besylate (Amlodipine 5 Mg Tablet) 5 mg PO [facility] Amlodipine Besylate (Amlodipine 10 Mg Tablet) 10 mg PO DAILY [facility] Last Admin: 12/23/20 08:15 Dose: 10 mg Documented by: Aspirin (Aspirin 81 Mg Tab.Chew) 81 mg PO DAILY [facility] Last Admin: 12/23/20 08:15 Dose: 81 mg Documented by: Atorvastatin Calcium (Atorvastatin 40 Mg Tablet) 40 mg PO [facility] Last Admin: 12/22/20 20:53 Dose: 40 mg Documented by: Clopidogrel Bisulfate (Clopidogrel 75 Mg Tablet) 75 mg PO QDAY [facility] Last Admin: 12/23/20 08:15 Dose: 75 mg Documented by: Docusate Sodium (Docusate Sodium 100 Mg Capsule) 100 mg PO BID [facility] Last Admin: 12/23/20 08:15 Dose: 100 mg Documented by: Gabapentin (Gabapentin 300 Mg Capsule) 300 mg PO TID [facility] Last Admin: 12/23/20 08:14 Dose: 300 mg Documented by: Hydromorphone HCl (Hydromorphone 0.5 Mg/0.5 Ml Syringe) 0.5 mg IV Q4HP PRN; Protocol PRN Reason: Per Pain Protocol Last Admin: 12/23/20 01:25 Dose: 0.5 mg Documented by: Sodium Chloride (Sodium Chloride 0.9%) 1,000 mls @ 150 mls/hr IV .Q6H40M [facility] Last Admin: 12/23/20 12:31 Dose: 150 mls/hr Documented by: Isosorbide Mononitrate (Isosorbide Mononitrate 30 Mg Tab.Xl.24h) 30 mg PO QAM [facility] Last Admin: 12/23/20 08:15 Dose: 30 mg Documented by: Lorazepam (Lorazepam 0.5 Mg Tablet) 0.5 mg PO HS [facility] Last Admin: 12/22/20 20:53 Dose: 0.5 mg Documented by: Memantine (Memantine 10 Mg Tablet) 10 mg PO BID [facility] Last Admin: 12/23/20 08:14 Dose: 10 mg Documented by: Metoprolol Tartrate (Metoprolol Tartrate 50 Mg Tablet) 50 mg PO BID [facility] Last Admin: 12/23/20 08:14 Dose: 50 mg Documented by: Multivitamins/Minerals (Vit A,C & E/Lutein/Minerals Tablet) 1 tab PO DAILY [facility] Last Admin: 12/23/20 08:14 Dose: 1 tab Documented by: Nitroglycerin (Nitroglycerin 0.4 Mg Tab.Subl) 0.4 mg SL Q5M PRN PRN Reason: Chest Pain Last Admin: 12/23/20 01:00 Dose: 0.4 mg Documented by: Ondansetron HCl (Ondansetron 4 Mg/2 Ml Vial) 4 mg IV Q6HP PRN PRN Reason: Nausea And Vomiting Oxycodone HCl (Oxycodone Hcl 5 Mg Tablet) 10 mg PO Q4HP PRN; Protocol PRN Reason: Per Pain Protocol Last Admin: 12/23/20 12:31 Dose: 10 mg Documented by: Senna (Sennosides 1 Tablet) 2 tab PO HS [facility] Last Admin: 12/22/20 20:53 Dose: 2 tab Documented by: Sertraline HCl (Sertraline 50 Mg Tablet) 50 mg PO QDAY [facility] Last Admin: 12/23/20 08:15 Dose: 50 mg Documented by: Sodium Chloride (0.9 % Sodium Chloride 10 Ml Syringe) 10 ml IV Q8 [facility] Last Admin: 12/23/20 12:32 Dose: Not Given Documented by: Tamsulosin HCl (Tamsulosin 0.4 Mg Capsule) 0.4 mg PO BID [facility] Last Admin: 12/23/20 08:52 Dose: 0.4 mg Documented by: Trazodone HCl (Trazodone Hcl 50 Mg Tablet) 25 mg PO HSP PRN PRN Reason: Insomnia Vitamin D (Vitamin D3 1,000 Unit Tablet) 2,000 unit PO DAILY [facility] Last Admin: 12/23/20 08:14 Dose: 2,000 unit Documented by: A/P Assessment and plan (1) Stage 3 acute kidney injury: Status: Acute (2) CKD stage 4 secondary to hypertension: Status: Acute Comment: CKD 4 due to HTN and vascular disease. Non-nephrotic proteinuria. Baseline SCr ~2.0 Left renal artery stent is present (3) History of coronary artery disease: Status: Acute (4) Right kidney stone: Status: Acute (5) Dementia: Status: Acute Comment: Hold aricept while we adjust B-mati dose due to risk of bradycardia Qualifiers: Dementia type: vascular dementia Dementia behavioral disturbance: without behavioral disturbance Qualified Code(s): F01.50 - Vascular dementia without behavioral disturbance (6) Essential (primary) hypertension: Status: Acute Narrative A/P Narrative: 1. Stage 3 acute kidney injury with chronic kidney injury stage IV associated with essential HTN: Stays in inpatient med surg telemetry Consult agvino Prado. appreciated CT abdomen pelvis does not suggestive of kidney stone obstruction (such as hydroureter or hydronephrosis) UA does not suggest any UTI Avoid nephrotoxic agents such as ADY-i Lisinopril NS@150cc/hr Repeat CMP in the morning Continue Norvasc and Lopressor 2. Nonobstructive right kidney stone: Postpone lithotripsy procedure until CAMILO resolves 3. Advanced dementia: Continue Memantine Continue Donepezil 4. h/o CAD s/p CABG: Continue Aspirin Continue Plavix Continue Imdur Continue Lopressor Continue Crestor GI ppx: not currently indicated DVT ppx: SCDs Code status: Full Prognosis: stable Disposition: inpatient med surg telemetry Time Spent With Patient Time: Total time spent is greater than 50% in coordination of care (as documented) at patient's floor/unit and/or counseling patient:
--- NOTE | 2020-12-23 15:29 | Ultrasound Report ---
INDICATION: ARF on ADY with lots of Ca++ vessels / ? ANTON TECHNIQUE: Routine duplex examination of the renal arteries COMPARISON: Previous CT scan dated 12/22/2020 FINDINGS: Right kidney measures 11.8 x 5.2 x 5.0 cm. No solid or cystic mass. No hydronephrosis. Left kidney measures 11.7 x 4.8 x 4.6 cm. There are 2 left renal cysts. No solid mass. Previous CT scan demonstrates a 7 mm calculus in the left renal pelvis. This is not identified on present examination. There is no hydronephrosis. No renal artery stenosis. No velocity elevation. Renal artery to aortic ratios are within normal limits. Resistive indices are abnormal. Resistive indices measure a maximum of 0.80 bilaterally. This may be secondary to medical renal disease. IMPRESSION: 1. No renal artery stenosis 2. Elevated resistive indices bilaterally Interpreted and Authenticated by: Rick oFrte 12/23/20
[2020-12-23] MEDS: SENNOSIDES 1 TABLET PO SCH (20:24)
[2020-12-23] MEDS: amLODIPine 5 MG TABLET PO SCH (20:25)
[2020-12-23] MEDS: ATORVASTATIN 40 MG TABLET PO SCH (20:25)
[2020-12-23] MEDS: LORazepam 0.5 MG TABLET PO SCH (20:25)
[2020-12-24] MEDS: 0.9 % SODIUM CHLORIDE 1,000 ML IV SCH ×4 (00:45→19:34)
[2020-12-24] MEDS: 0.9 % SODIUM CHLORIDE 10 ML SYRINGE IV SCH ×3 (05:54→21:12)
[2020-12-24] MEDS: GABAPENTIN 300 MG CAPSULE PO SCH ×3 (08:49→21:11)
[2020-12-24] MEDS: VIT A,C & E/LUTEIN/MINERALS TABLET PO SCH (08:49)
[2020-12-24] MEDS: VITAMIN D3 1,000 UNIT TABLET PO SCH (08:50)
[2020-12-24] MEDS: METOPROLOL TARTRATE 50 MG TABLET PO SCH ×2 (08:50→21:10)
[2020-12-24] MEDS: amLODIPine 10 MG TABLET PO SCH (08:50)
[2020-12-24] MEDS: SERTRALINE 50 MG TABLET PO SCH (08:50)
[2020-12-24] MEDS: ISOSORBIDE MONONITRATE 30 MG TAB.XL.24H PO SCH (08:51)
[2020-12-24] MEDS: CLOPIDOGREL 75 MG TABLET PO SCH (08:51)
[2020-12-24] MEDS: MEMANTINE 10 MG TABLET PO SCH ×2 (08:51→21:10)
[2020-12-24] MEDS: TAMSULOSIN 0.4 MG CAPSULE PO SCH ×2 (08:51→21:10)
[2020-12-24] MEDS: DOCUSATE SODIUM 100 MG CAPSULE PO SCH ×2 (08:51→21:11)
[2020-12-24] MEDS: ASPIRIN 81 MG TAB.CHEW PO SCH (08:52)
--- NOTE | 2020-12-24 10:18 | Nephrology Progress Note ---
SUBJECTIVE Subjective Patient information: Note initiated : 12/24/20 at 10:17 am Service Date, if different from initiated Date: [] Patient: Justin Simmons 85 y/o M admitted on 12/22/20 for High CRE, Flank Pain. Chief Complaint: [elevated pre-op creatinine] Baseline creatinine of around 2 as recently as the end of November 2020. He complained of right back pain had a CT that showed a left UPJ kidney stone with mild obstruction on 12/17/2020. He was set up for stent deployment and laser treatment when his preoperative creatinine was now found to be 6 and he was admitted to the hospital. Added to the confusion a repeat CT scan done on 12/22/2020 now reported a right nonobstructing kidney stone and reported that the left kidney was essentially normal. A personal review of the radiographic findings would disagree with the radiology report I see a left ureteral stone with surrounding perinephric stranding and hydronephrosis as well as previous renal artery stenting of the left renal artery. The patient had an episode of acute renal failure that responded to just IV fluids back in April 2019 at [facility]. Furthermore he just underwent left heart catheter PCI deployment at the end of October 2020 again at [facility] no change in his GFR. At time he was started on an ADY inhibitor and now has a marked elevation in his serum creatinine. Patient is unable to participate in a meaningful history so I cannot tell if he is on nonsteroidals for his back pain is well and I was unable to reach his last night. Unless his ADY inhibitor was discontinued and IV hydration was started overnight. I have asked the radiologist this morning to relook at the most recent CT and addend his report i f appropriate. Otherwise, one would have to suppose that previous seen left kidney stone had passed but again to my eye that does not appear to be the case. Renal U/S 12/23/2020: Right kidney measures 11.8 x 5.2 x 5.0 cm. No solid or cystic mass. No hydronephrosis. Left kidney measures 11.7 x 4.8 x 4.6 cm. There are 2 left renal cysts. No solid mass. Previous CT scan demonstrates a 7 mm calculus in the left renal pelvis. This is not identified on present examination. There is no hydronephrosis. No renal artery stenosis. No velocity elevation. Renal artery to aortic ratios are within normal limits. Resistive indices are abnormal. Resistive indices measure a maximum of 0.80 bilaterally. This may be secondary to medical renal disease. IMPRESSION: 1. No renal artery stenosis 2. Elevated resistive indices bilaterally Constitutional Vitals: Vital Signs Temp Pulse Resp BP Pulse Ox 36.3 C 57 L 16 152/70 93 12/24/20 07:38 12/24/20 07:38 12/24/20 07:38 12/24/20 07:38 12/24/20 07:38 Period Temp Pulse Resp BP Sys/Peña Pulse Ox Last 24 Hr 36.3 C-36.9 C 57-74 16-18 120-152/64-72 93-95 Intake and Output 12/23/20 12/24/20 12/24/20 21:59 05:59 13:59 Intake Total 2660 1400 Output Total 1500 1100 800 Balance 1160 300 -800 Weight 86.772 kg Intake & Output: Intake & Output 12/23/20 12/24/20 12/24/20 21:59 05:59 13:59 Intake Total 2660 1400 Output Total 1500 1100 800 Balance 1160 300 -800 Weight 86.772 kg Intake: IV 980 1000 Sodium Chloride 0.9% 1,000 ml @ 980 1000 150 mls/hr IV .Q6H40M [facility] Rx#: [id number] Oral 1680 400 Output: Urine Catheter Amount 1500 1100 800 Other: Meal Dinner Percent of Meal Consumed 100% Feeding Ability Independent Urine Appearance Clear Clear Uretheral (Thomason) Clear Clear Clear Urine Color Pale Pale Uretheral (Thomason) Pale Bright Yellow Bright Yellow Urine Odor Normal Stool Size Moderate Stool Color Brown Stool Consistency Normal for Patient General appearance: no acute distress and obese Exam: Exam: General Appearance General appearance: obese, moderate distress, chronically ill and frail EENT: ATNC, PERRL and hearing intact (bilateral hearing aids) Neck: no JVD and no carotid bruit Respiratory: kyphosis and rhonchi Cardiology: no murmurs, no gallops, edema (trace), regular rhythm, rapid rhythm (8 beat mikey of wide complex tachycardia while I was seeing him...no sx), normal S1 and normal S2 Gastrointestinal: normoactive bowel sounds, no guarding and obese : No CVAT Integumentary: warm and dry and hyperkeratosis Neurologic: no focal deficit, no asterixis and CN 3-12 intact Musculoskeletal: no erythema, no cyanosis, no clubbing (+) paraspinal back tenderness Psychiatric: mood/affect appropriate Additional exam: No atheroembolic lesions in toes or fingers A/P Narrative A/P Narrative: A/P Narrative A/P Narrative: Assessment and plan (1) CKD stage 4 secondary to hypertension: (2) Renal failure (ARF), acute on chronic: (3) Left renal stone: (4) Hypertensive renovascular disease: (5) CAD (coronary artery disease) of bypass graft: with recent PTCA and VADIM deployment 10/2020 at [facility] (6) Dementia: Vascular on Rx A/P Narrative: 1. This is not IV contrast associated ATN. 2. Ultimately this is a combination of dehydration (similar to the episode in April 2019) worsened by ADY inhibitor therapy. 3. Patient has nephrolithiasis with left UPJ stone which was evident on the CT of 12/16/2020 and still present on the 12/22/2020 CT but the interpretation seems to be an error as I see no right sided stone 4. CT scan or more appropriately would be to have the radiologist correct the CT interpretation. 5. Recommend proceeding with left ureteral stent placement to relieve the obstruction and continue hydration in this patient 6. He is avoid any RAASI therapy, his lisinopril has already been discontinued, and do not attempt to get this patient on nonsteroidal anti-inflammatory 7. Speak to the to see if there has been any nonsteroidal use at home as he is too demented to give a history that can be relied upon, additionally CODE STATUS needs to be addressed 8. Since this patient had PTCA and VADIM deployment 1 month ago, I favor just placing a stent and keeping him on Plavix for 3 months total at which time we can do some sort of definitive treatment on his kidney stone while stopping the Plavix for a few days. 9. Recheck GFR tomorrow. Time Spent With Patient Time: Total time spent is greater than 50% in coordination of care (as documented) at patient's floor/unit and/or counseling patient:
[2020-12-24 13:10] LABS: ALT/SGPT 9 U/L (<40); AST/SGOT 13 U/L (<40); Albumin 2.8 gm/dL (3.2-5.2); Albumin/Globulin Ratio 0.7 (1.0-2.3); Alkaline Phosphatase 43 U/L (39-117); Bilirubin,Direct < 0.2 mg/dL (0-0.3); Bilirubin,Total 0.2 mg/dL (0.1-1.0); Blood Urea Nitrogen 42 mg/dL (8-23); Calcium 8.3 mg/dL (8.6-10.4); Carbon Dioxide 17 mmol/L (22-30); Chloride 110 mmol/L (96-108); Globulin 3.9 gm/dL (2.2-3.7); Glomerular Filtration Rate 15; Glucose 83 mg/dL (70-105); Lactate Dehydrogenase 194 U/L (135-225); Phosphorous 3.9 mg/dL (2.5-4.5); Triglycerides 127 mg/dL (<150); Uric Acid 6.7 mg/dL (2.5-8.0)
--- NOTE | 2020-12-24 13:56 | Internal Med Progress Note ---
SUBJECTIVE Subjective Patient information: Note initiated : 12/24/20 at 1:54 pm Service Date, if different from initiated Date: [] Patient: Justin Simmons 85 y/o M admitted on 12/22/20 for High CRE, Flank Pain. Chief Complaint: [] Interval history: History of present illness: Mr. Simmons is a 85 year old M history of CAD status post CABG, chronic kidney disease stage IV, advanced dementia, presenting with acute kidney injury with elevated serum creatinine level. Patient baseline serum creatinine level was 2.3 a week ago but today it is 6.5. He was recently been diagnosed with bilateral kidney stones (6mm diameter in left ureteropelvic junction, and 7mm diameter in right renal pelvis. He is scheduled to be seen by urologist and have lithotripsy procedures to have the stone removed but as part of the preoperative evaluations he was Found to have elevated serum creatinine level. As a result, the planned lithotripsy procedure was postponed and patient was instead asked to come to the ED for further evaluation and treatment. CT of the abdomen pelvis again showing those kidney stones. UA suggests against the presence of urinary tract infections. Patient is not septic. Patient is complaining of the right lower rib cage pain secondary to a fall that happened 2 to 3 days ago. No rib fractures was identified. 12/24-patient clinically improving. Nephrology on board. Potassium down to 4.6, creatinine down to 3.5 from 4.5, bilateral nonobstructive renal stone on imaging. Restarted on home medication except for ADY inhibitor. Troponin unchanged. No other concerns expressed by nursing staff. Constitutional Vitals: Vital Signs Temp Pulse Resp BP Pulse Ox 97.5 F 58 L 16 147/68 94 12/24/20 11:48 12/24/20 11:48 12/24/20 11:48 12/24/20 11:48 12/24/20 11:48 Period Temp Pulse Resp BP Sys/Peña Pulse Ox Last 24 Hr 97.3 F-98.4 F 57-74 16-18 120-152/64-72 93-95 Intake and Output 12/23/20 12/24/20 12/24/20 21:59 05:59 13:59 Intake Total 2660 1400 1240 Output Total 1500 1100 1400 Balance 1160 300 -160 Weight 86.772 kg intermittently confused Nonlabored breathing No anxiety Intake & Output: Intake & Output 12/23/20 12/24/20 12/24/20 21:59 05:59 13:59 Intake Total 2660 1400 1240 Output Total 1500 1100 1400 Balance 1160 300 -160 Weight 86.772 kg Intake: IV 980 1000 1000 Sodium Chloride 0.9% 1,000 ml @ 980 1000 1000 150 mls/hr IV .Q6H40M [facility] Rx#: [id number] Oral 1680 400 240 Output: Urine Catheter Amount 1500 1100 1400 Other: Meal Dinner Breakfast Percent of Meal Consumed 100% Feeding Ability Independent Urine Appearance Clear Clear Uretheral (Thomason) Clear Clear Clear Urine Color Pale Pale Uretheral (Thomason) Pale Bright Yellow Bright Yellow Urine Odor Normal Stool Size Moderate Stool Color Brown Stool Consistency Normal for Patient # Voids 1 OBJ DATA Labs CBC & Chem 7: 12/23/20 05:36 12/24/20 11:35 Labs: Abnormal Lab Results 12/24/20 12/23/20 12/23/20 11:35 08:20 05:36 RBC Hgb Hct MCV MCH Neut % (Auto) Lymph % (Auto) Lymph # (Auto) Potassium 5.2 H Chloride 110 H 115 H Carbon Dioxide 17 L 17 L BUN 42 H 46 H Creatinine 3.5 H 4.5 H Glucose 108 H Calcium 8.3 L Troponin T 0.03 H Albumin 2.8 L Globulin 3.9 H 4.1 H Albumin/Globulin Ratio 0.7 L 0.8 L Urine Appearance Urine Protein Urine Bacteria Urine Mucus Ur Random Creatinine Ur Random Chloride Ur Random Uric Acid 12/23/20 12/23/20 12/23/20 05:36 04:44 04:44 RBC 3.13 L Hgb 11.0 L Hct 33.7 L MCV 107.7 H MCH 35.1 H Neut % (Auto) 78.2 H Lymph % (Auto) 11.8 L Lymph # (Auto) 0.94 L Potassium Chloride Carbon Dioxide BUN Creatinine Glucose Calcium Troponin T Albumin Globulin Albumin/Globulin Ratio Urine Appearance Urine Protein Urine Bacteria Urine Mucus Ur Random Creatinine Ur Random Chloride 91 L Ur Random Uric Acid 12.0 L 12/23/20 12/23/20 12/23/20 04:44 04:44 02:40 RBC Hgb Hct MCV MCH Neut % (Auto) Lymph % (Auto) Lymph # (Auto) Potassium Chloride Carbon Dioxide BUN Creatinine Glucose Calcium Troponin T 0.03 H Albumin Globulin Albumin/Globulin Ratio Urine Appearance Urine Protein Urine Bacteria Urine Mucus Ur Random Creatinine 28.7 L 28.2 L Ur Random Chloride Ur Random Uric Acid 12/22/20 12/22/20 19:52 10:22 RBC Hgb Hct MCV MCH Neut % (Auto) Lymph % (Auto) Lymph # (Auto) Potassium Chloride Carbon Dioxide BUN Creatinine Glucose Calcium Troponin T 0.04 H* Albumin Globulin Albumin/Globulin Ratio Urine Appearance Hazy A Urine Protein 30 A Urine Bacteria Few A Urine Mucus Few A Ur Random Creatinine Ur Random Chloride Ur Random Uric Acid Meds: Medications Acetaminophen (Acetaminophen 325 Mg Tablet) 650 mg PO Q6HP PRN; Protocol PRN Reason: Per Pain Protocol/Fever > 101 Amlodipine Besylate (Amlodipine 5 Mg Tablet) 5 mg PO [facility] Last Admin: 12/23/20 20:25 Dose: 5 mg Documented by: Amlodipine Besylate (Amlodipine 10 Mg Tablet) 10 mg PO DAILY [facility] Last Admin: 12/24/20 08:50 Dose: 10 mg Documented by: Aspirin (Aspirin 81 Mg Tab.Chew) 81 mg PO DAILY [facility] Last Admin: 12/24/20 08:52 Dose: 81 mg Documented by: Atorvastatin Calcium (Atorvastatin 40 Mg Tablet) 40 mg PO [facility] Last Admin: 12/23/20 20:25 Dose: 40 mg Documented by: Clopidogrel Bisulfate (Clopidogrel 75 Mg Tablet) 75 mg PO QDAY [facility] Last Admin: 12/24/20 08:51 Dose: 75 mg Documented by: Docusate Sodium (Docusate Sodium 100 Mg Capsule) 100 mg PO BID [facility] Last Admin: 12/24/20 08:51 Dose: 100 mg Documented by: Gabapentin (Gabapentin 300 Mg Capsule) 300 mg PO TID [facility] Last Admin: 12/24/20 08:49 Dose: 300 mg Documented by: Hydromorphone HCl (Hydromorphone 0.5 Mg/0.5 Ml Syringe) 0.5 mg IV Q4HP PRN; Protocol PRN Reason: Per Pain Protocol Last Admin: 12/23/20 01:25 Dose: 0.5 mg Documented by: Sodium Chloride (Sodium Chloride 0.9%) 1,000 mls @ 150 mls/hr IV .Q6H40M [facility] Last Admin: 12/24/20 13:02 Dose: 150 mls/hr Documented by: Isosorbide Mononitrate (Isosorbide Mononitrate 30 Mg Tab.Xl.24h) 30 mg PO QAM [facility] Last Admin: 12/24/20 08:51 Dose: 30 mg Documented by: Lorazepam (Lorazepam 0.5 Mg Tablet) 0.5 mg PO [facility] Last Admin: 12/23/20 20:25 Dose: 0.5 mg Documented by: Memantine (Memantine 10 Mg Tablet) 10 mg PO BID [facility] Last Admin: 12/24/20 08:51 Dose: 10 mg Documented by: Metoprolol Tartrate (Metoprolol Tartrate 50 Mg Tablet) 50 mg PO BID [facility] Last Admin: 12/24/20 08:50 Dose: 50 mg Documented by: Multivitamins/Minerals (Vit A,C & E/Lutein/Minerals Tablet) 1 tab PO DAILY [facility] Last Admin: 12/24/20 08:49 Dose: 1 tab Documented by: Nitroglycerin (Nitroglycerin 0.4 Mg Tab.Subl) 0.4 mg SL Q5M PRN PRN Reason: Chest Pain Last Admin: 12/23/20 01:00 Dose: 0.4 mg Documented by: Ondansetron HCl (Ondansetron 4 Mg/2 Ml Vial) 4 mg IV Q6HP PRN PRN Reason: Nausea And Vomiting Oxycodone HCl (Oxycodone Hcl 5 Mg Tablet) 10 mg PO Q4HP PRN; Protocol PRN Reason: Per Pain Protocol Last Admin: 12/23/20 17:35 Dose: 10 mg Documented by: Senna (Sennosides 1 Tablet) 2 tab PO [facility] Last Admin: 12/23/20 20:24 Dose: 2 tab Documented by: Sertraline HCl (Sertraline 50 Mg Tablet) 50 mg PO QDAY [facility] Last Admin: 12/24/20 08:50 Dose: 50 mg Documented by: Sodium Chloride (0.9 % Sodium Chloride 10 Ml Syringe) 10 ml IV Q8 [facility] Last Admin: 12/24/20 13:05 Dose: Not Given Documented by: Tamsulosin HCl (Tamsulosin 0.4 Mg Capsule) 0.4 mg PO BID [facility] Last Admin: 12/24/20 08:51 Dose: 0.4 mg Documented by: Trazodone HCl (Trazodone Hcl 50 Mg Tablet) 25 mg PO [facility] PRN PRN Reason: Insomnia Vitamin D (Vitamin D3 1,000 Unit Tablet) 2,000 unit PO DAILY [facility] Last Admin: 12/24/20 08:50 Dose: 2,000 unit Documented by: A/P Narrative A/P Narrative: * Acute on chronic kidney disease. Managed by nephrology. Creatinine downtrending from 4.5-3.5. ADY inhibitor is on hold. * Nonobstructive bilateral renal stone will follow up with Dr. Barrios as outpatient * History of dementia continue donepezil * History of CAD status post CABG continue aspirin/Plavix/Imdur/beta- mati/Crestor * Hypertension-Management per nephrology. * Anxiety disorder continue sertraline * Prophylaxis SCDs Plan * Renal failure management per nephrology * Other pre-existing medical condition management home medications * PT OT/nutrition support * Discharge planning Time Spent With Patient Time: Total time spent is greater than 50% in coordination of care (as documented) at patient's floor/unit and/or counseling patient:
[2020-12-24] MEDS: ACETAMINOPHEN 325 MG TABLET PO PRN (19:31)
[2020-12-24] MEDS: ATORVASTATIN 40 MG TABLET PO SCH (21:10)
[2020-12-24] MEDS: LORazepam 0.5 MG TABLET PO SCH (21:10)
[2020-12-24] MEDS: SENNOSIDES 1 TABLET PO SCH (21:10)
[2020-12-24] MEDS: amLODIPine 5 MG TABLET PO SCH (21:11)
[2020-12-24] MEDS: oxyCODONE HCL 5 MG TABLET PO PRN (23:56)
[2020-12-25] MEDS: 0.9 % SODIUM CHLORIDE 1,000 ML IV SCH ×3 (04:17→14:34)
[2020-12-25] MEDS: 0.9 % SODIUM CHLORIDE 10 ML SYRINGE IV SCH ×3 (04:18→22:15)
[2020-12-25 08:23] LABS: Albumin 3.2 gm/dL (3.2-5.2); Blood Urea Nitrogen 46 mg/dL (8-23); Calcium 8.6 mg/dL (8.6-10.4); Carbon Dioxide 20 mmol/L (22-30); Chloride 108 mmol/L (96-108); Glomerular Filtration Rate 15; Glucose 97 mg/dL (70-105); Phosphorous 4.2 mg/dL (2.5-4.5)
[2020-12-25] MEDS: VITAMIN D3 1,000 UNIT TABLET PO SCH (09:49)
[2020-12-25] MEDS: SERTRALINE 50 MG TABLET PO SCH (09:49)
[2020-12-25] MEDS: MEMANTINE 10 MG TABLET PO SCH ×2 (09:49→20:45)
[2020-12-25] MEDS: TAMSULOSIN 0.4 MG CAPSULE PO SCH ×2 (09:49→20:45)
[2020-12-25] MEDS: METOPROLOL TARTRATE 50 MG TABLET PO SCH ×2 (09:50→20:46)
[2020-12-25] MEDS: GABAPENTIN 300 MG CAPSULE PO SCH ×3 (09:50→20:45)
[2020-12-25] MEDS: CLOPIDOGREL 75 MG TABLET PO SCH (09:50)
[2020-12-25] MEDS: amLODIPine 10 MG TABLET PO SCH (09:50)
[2020-12-25] MEDS: VIT A,C & E/LUTEIN/MINERALS TABLET PO SCH (09:50)
[2020-12-25] MEDS: ISOSORBIDE MONONITRATE 30 MG TAB.XL.24H PO SCH (09:51)
[2020-12-25] MEDS: DOCUSATE SODIUM 100 MG CAPSULE PO SCH ×2 (09:51→20:46)
[2020-12-25] MEDS: ASPIRIN 81 MG TAB.CHEW PO SCH (09:51)
--- NOTE | 2020-12-25 11:39 | Internal Med Progress Note ---
SUBJECTIVE Subjective Patient information: Note initiated : 12/25/20 at 11:37 am Service Date, if different from initiated Date: [] Patient: Justin Simmons 85 y/o M admitted on 12/22/20 for High CRE, Flank Pain. Chief Complaint: [] Interval history: History of present illness: Mr. Simmons is a 85 year old M history of CAD status post CABG, chronic kidney disease stage IV, advanced dementia, presenting with acute kidney injury with elevated serum creatinine level. Patient baseline serum creatinine level was 2.3 a week ago but today it is 6.5. He was recently been diagnosed with bilateral kidney stones (6mm diameter in left ureteropelvic junction, and 7mm diameter in right renal pelvis. He is scheduled to be seen by urologist and have lithotripsy procedures to have the stone removed but as part of the preoperative evaluations he was Found to have elevated serum creatinine level. As a result, the planned lithotripsy procedure was postponed and patient was instead asked to come to the ED for further evaluation and treatment. CT of the abdomen pelvis again showing those kidney stones. UA suggests against the presence of urinary tract infections. Patient is not septic. Patient is complaining of the right lower rib cage pain secondary to a fall that happened 2 to 3 days ago. No rib fractures was identified. 12/24-patient clinically improving. Nephrology on board. Potassium down to 4.6, creatinine down to 3.5 from 4.5, bilateral nonobstructive renal stone on imaging. Restarted on home medication except for ADY inhibitor. Troponin unchanged. No other concerns expressed by nursing staff. 12/25-patient doing well. at bedside. Creatinine at 3.4. Nephrology on board. No overnight events. No additional concerns per nursing staff. Ongoing therapies. Intermittently oriented, Thomason is draining clear urine. DC'd IV line. Cardiac monitoring discontinued. Pain well controlled. No overnight fever chills nausea vomiting or concerns per staff Constitutional Vitals: Vital Signs Temp Pulse Resp BP Pulse Ox 97.5 F 61 18 149/59 93 12/25/20 07:47 12/25/20 07:47 12/25/20 07:47 12/25/20 07:47 12/25/20 07:47 Period Temp Pulse Resp BP Sys/Epña Pulse Ox Last 24 Hr 97.4 F-98.7 F 54-65 16-20 122-149/59-73 93-98 Intake and Output 12/24/20 12/25/20 12/25/20 21:59 05:59 13:59 Intake Total 1000 1200 240 Output Total 1550 1800 1150 Balance -550 600 -910 Weight 88.541 kg alert but intimately confused Nonlabored breathing Thomason is running clear urine Minimal lymphedema Intake & Output: Intake & Output 12/24/20 12/25/20 12/25/20 21:59 05:59 13:59 Intake Total 1000 1200 240 Output Total 1550 1800 1150 Balance -550 -600 -910 Weight 88.541 kg Intake: IV 1000 1000 Sodium Chloride 0.9% 1,000 ml @ 1000 1000 150 mls/hr IV .Q6H40M [facility] Rx#: [id number] Oral 200 240 Output: Urine Catheter Amount 1550 1150 Void Amount 1800 Other: Meal Breakfast Percent of Meal Consumed 100% Urine Appearance Clear Clear Clear Urine Color Pale Pale Bright Yellow Urine Odor Normal Stool Size Moderate Stool Color Brown Stool Consistency Normal for Patient OBJ DATA Labs CBC & Chem 7: 12/23/20 05:36 12/25/20 05:37 Labs: Abnormal Lab Results 12/25/20 12/24/20 12/23/20 05:37 11:35 08:20 RBC Hgb Hct MCV MCH Neut % (Auto) Lymph % (Auto) Lymph # (Auto) Potassium Chloride 110 H Carbon Dioxide 20 L 17 L Anion Gap 7.0 L BUN 46 H 42 H Creatinine 3.4 H 3.5 H Glucose Calcium 8.3 L Troponin T 0.03 H Albumin 2.8 L Globulin 3.9 H Albumin/Globulin Ratio 0.7 L Ur Random Creatinine Ur Random Chloride Ur Random Uric Acid 12/23/20 12/23/20 12/23/20 05:36 05:36 04:44 RBC 3.13 L Hgb 11.0 L Hct 33.7 L MCV 107.7 H MCH 35.1 H Neut % (Auto) 78.2 H Lymph % (Auto) 11.8 L Lymph # (Auto) 0.94 L Potassium 5.2 H Chloride 115 H Carbon Dioxide 17 L Anion Gap BUN 46 H Creatinine 4.5 H Glucose 108 H Calcium Troponin T Albumin Globulin 4.1 H Albumin/Globulin Ratio 0.8 L Ur Random Creatinine Ur Random Chloride Ur Random Uric Acid 12.0 L 12/23/20 12/23/20 12/23/20 04:44 04:44 04:44 RBC Hgb Hct MCV MCH Neut % (Auto) Lymph % (Auto) Lymph # (Auto) Potassium Chloride Carbon Dioxide Anion Gap BUN Creatinine Glucose Calcium Troponin T Albumin Globulin Albumin/Globulin Ratio Ur Random Creatinine 28.7 L 28.2 L Ur Random Chloride 91 L Ur Random Uric Acid 12/23/20 12/22/20 02:40 19:52 RBC Hgb Hct MCV MCH Neut % (Auto) Lymph % (Auto) Lymph # (Auto) Potassium Chloride Carbon Dioxide Anion Gap BUN Creatinine Glucose Calcium Troponin T 0.03 H 0.04 H* Albumin Globulin Albumin/Globulin Ratio Ur Random Creatinine Ur Random Chloride Ur Random Uric Acid Meds: Medications Acetaminophen (Acetaminophen 325 Mg Tablet) 650 mg PO Q6HP PRN; Protocol PRN Reason: Per Pain Protocol/Fever > 101 Last Admin: 12/24/20 19:31 Dose: 650 mg Documented by: Amlodipine Besylate (Amlodipine 5 Mg Tablet) 5 mg PO [facility] Last Admin: 12/24/20 21:11 Dose: 5 mg Documented by: Amlodipine Besylate (Amlodipine 10 Mg Tablet) 10 mg PO DAILY [facility] Last Admin: 12/25/20 09:50 Dose: 10 mg Documented by: Aspirin (Aspirin 81 Mg Tab.Chew) 81 mg PO DAILY [facility] Last Admin: 12/25/20 09:51 Dose: 81 mg Documented by: Atorvastatin Calcium (Atorvastatin 40 Mg Tablet) 40 mg PO [facility] Last Admin: 12/24/20 21:10 Dose: 40 mg Documented by: Clopidogrel Bisulfate (Clopidogrel 75 Mg Tablet) 75 mg PO QDAY [facility] Last Admin: 12/25/20 09:50 Dose: 75 mg Documented by: Docusate Sodium (Docusate Sodium 100 Mg Capsule) 100 mg PO BID [facility] Last Admin: 12/25/20 09:51 Dose: 100 mg Documented by: Gabapentin (Gabapentin 300 Mg Capsule) 300 mg PO TID [facility] Last Admin: 12/25/20 09:50 Dose: 300 mg Documented by: Hydromorphone HCl (Hydromorphone 0.5 Mg/0.5 Ml Syringe) 0.5 mg IV Q4HP PRN; Protocol PRN Reason: Per Pain Protocol Last Admin: 12/23/20 01:25 Dose: 0.5 mg Documented by: Sodium Chloride (Sodium Chloride 0.9%) 1,000 mls @ 150 mls/hr IV .Q6H40M [facility] Last Infusion: 12/25/20 04:17 Dose: Infused Documented by: Isosorbide Mononitrate (Isosorbide Mononitrate 30 Mg Tab.Xl.24h) 30 mg PO QAM [facility] Last Admin: 12/25/20 09:51 Dose: 30 mg Documented by: Lorazepam (Lorazepam 0.5 Mg Tablet) 0.5 mg PO [facility] Last Admin: 12/24/20 21:10 Dose: 0.5 mg Documented by: Memantine (Memantine 10 Mg Tablet) 10 mg PO BID [facility] Last Admin: 12/25/20 09:49 Dose: 10 mg Documented by: Metoprolol Tartrate (Metoprolol Tartrate 50 Mg Tablet) 50 mg PO BID [facility] Last Admin: 12/25/20 09:50 Dose: 50 mg Documented by: Multivitamins/Minerals (Vit A,C & E/Lutein/Minerals Tablet) 1 tab PO DAILY [facility] Last Admin: 12/25/20 09:50 Dose: 1 tab Documented by: Nitroglycerin (Nitroglycerin 0.4 Mg Tab.Subl) 0.4 mg SL Q5M PRN PRN Reason: Chest Pain Last Admin: 12/23/20 01:00 Dose: 0.4 mg Documented by: Ondansetron HCl (Ondansetron 4 Mg/2 Ml Vial) 4 mg IV Q6HP PRN PRN Reason: Nausea And Vomiting Oxycodone HCl (Oxycodone Hcl 5 Mg Tablet) 10 mg PO Q4HP PRN; Protocol PRN Reason: Per Pain Protocol Last Admin: 12/24/20 23:56 Dose: 10 mg Documented by: Senna (Sennosides 1 Tablet) 2 tab PO [facility] Last Admin: 12/24/20 21:10 Dose: 2 tab Documented by: Sertraline HCl (Sertraline 50 Mg Tablet) 50 mg PO QDAY [facility] Last Admin: 12/25/20 09:49 Dose: 50 mg Documented by: Sodium Chloride (0.9 % Sodium Chloride 10 Ml Syringe) 10 ml IV Q8 [facility] Last Admin: 12/25/20 04:18 Dose: Not Given Documented by: Tamsulosin HCl (Tamsulosin 0.4 Mg Capsule) 0.4 mg PO BID [facility] Last Admin: 12/25/20 09:49 Dose: 0.4 mg Documented by: Trazodone HCl (Trazodone Hcl 50 Mg Tablet) 25 mg PO [facility] PRN PRN Reason: Insomnia Vitamin D (Vitamin D3 1,000 Unit Tablet) 2,000 unit PO DAILY [facility] Last Admin: 12/25/20 09:49 Dose: 2,000 unit Documented by: A/P Narrative A/P Narrative: * Acute on chronic kidney disease. Managed by nephrology. Creatinine downtrending from 4.5-3.5. ADY inhibitor on hold. * Nonobstructive bilateral renal stone will follow up with Dr. Barrios as outpatient * History of dementia continue donepezil * History of CAD status post CABG continue aspirin/Plavix/Imdur/beta-mati /Crestor * Hypertension-Management per nephrology. * Anxiety disorder continue sertraline * Prophylaxis SCDs Plan * Continue renal failure management per nephrology * Other pre-existing medical condition management home medications * PT OT/nutrition support * Discharge planning pending improvement in renal function Time Spent With Patient Time: Total time spent is greater than 50% in coordination of care (as documented) at patient's floor/unit and/or counseling patient:
[2020-12-25] MEDS: oxyCODONE HCL 5 MG TABLET PO PRN (14:31)
--- NOTE | 2020-12-25 15:09 | Nephrology Progress Note ---
SUBJECTIVE Subjective Patient information: Note initiated : 12/25/20 at 3:00 pm Service Date, if different from initiated Date: [] Patient: Justin Simmons 85 y/o M admitted on 12/22/20 for High CRE, Flank Pain. Chief Complaint: [pre op labs out of kilter] Baseline Scr ~2.0 mg/dl with HTN and renovascular Dx (Left ANTON). Recently hospitalized at [facility] and underwent LHC and VADIM placement with no evidence of acute decline in GFR. C/O right flank and back pain but initial CT reported LEFT UPJ stone with mild hydro. Preop labs with marked increase in SCr 2=>6 mg/dl Intial read of CT 12/22/2020 reported Right nonobstructing lower pole stone and left w/o stone which added to confusion. Once the patient found and placed his hearing aids in, he could understand and answere questions => Specifically that he was taking IBUPROFEN for LBP and recently started on LISINOPRIL and now with ARF on CKD 4. May be a component of obstructive uropathy as well. Improved GFR with SCr dropping from 6 to 3.4 mg/dl (Baseline 2.0). May have an element of left obstructive uropathy Remove madrigal and stop IVF today Constitutional Vitals: Vital Signs Temp Pulse Resp BP Pulse Ox 36.9 C 44 L 18 104/51 94 12/25/20 12:00 12/25/20 12:00 12/25/20 12:00 12/25/20 12:00 12/25/20 12:00 Period Temp Pulse Resp BP Sys/Peña Pulse Ox Last 24 Hr 36.3 C-37.1 C 44-65 16-20 104-149/51-73 93-98 Intake and Output 12/25/20 12/25/20 12/25/20 05:59 13:59 21:59 Intake Total 1200 240 Output Total 1800 1150 Balance -600 -910 Intake & Output: Intake & Output 12/25/20 12/25/20 12/25/20 05:59 13:59 21:59 Intake Total 1200 240 Output Total 1800 1150 Balance -600 -910 Intake: IV 1000 Sodium Chloride 0.9% 1,000 ml @ 1000 150 mls/hr IV .[id number] [facility] Rx#: [id number] Oral 200 240 Output: Urine Catheter Amount 1150 Void Amount 1800 Other: Meal Breakfast Percent of Meal Consumed 100% Urine Appearance Clear Clear Urine Color Pale Bright Yellow Urine Odor Normal Stool Size Moderate Stool Color Brown Stool Consistency Normal for Patient Exam: General appearance: no acute distress and obese Exam: Exam: General Appearance General appearance: obese, moderate distress, chronically ill and frail EENT: ATNC, PERRL and hearing intact (bilateral hearing aids) Neck: no JVD and no carotid bruit Respiratory: kyphosis and rhonchi Cardiology: no murmurs, no gallops, edema (trace), regular rhythm, rapid rhythm (8 beat mikey of wide complex tachycardia while I was seeing him...no sx), normal S1 and normal S2 Gastrointestinal: normoactive bowel sounds, no guarding and obese : No CVAT Integumentary: warm and dry and hyperkeratosis Neurologic: no focal deficit, no asterixis and CN 3-12 intact Musculoskeletal: no erythema, no cyanosis, no clubbing (+) paraspinal back tenderness Psychiatric: mood/affect appropriate Additional exam: No atheroembolic lesions in toes or fingers A/P Narrative A/P Narrative: A/P Narrative: Assessment and plan (1) CKD stage 4 secondary to hypertension: (2) Renal failure (ARF), acute on chronic: (3) Left renal stone: (4) Hypertensive renovascular disease: (5) CAD (coronary artery disease) of bypass graft: with recent PTCA and VADIM deployment 10/2020 at [facility] (6) Dementia: Vascular on Rx A/P Narrative: 1. This is not IV contrast associated ATN. 2. Ultimately this is a combination of dehydration (similar to the episode in April 2019) worsened by ADY inhibitor therapy and NSAIDs. 3. Patient has nephrolithiasis with left UPJ stone which was evident on the CT of 12/16/2020 and still present on the 12/22/2020 CT but the interpretation seems to be an error as I see no right sided stone 4. CT scan or more appropriately would be to have the radiologist correct the CT interpretation. 5. Recommend proceeding with left ureteral stent placement to relieve the obstruction and continue hydration in this patient 6. He is avoid any RAASI therapy, his lisinopril has already been discontinued, and do not attempt to get this patient on nonsteroidal anti-inflammatory 7. Speak to the to see if there has been any nonsteroidal use at home as he is too demented to give a history that can be relied upon, additionally CODE STATUS needs to be addressed 8. Since this patient had PTCA and VADIM deployment 1 month ago, I favor just placing a stent and keeping him on Plavix for 3 months total at which time we can do some sort of definitive treatment on his kidney stone while stopping the Plavix for a few days. 9. Recheck GFR tomorrow. Time Spent With Patient Time: Total time spent is greater than 50% in coordination of care (as documented) at patient's floor/unit and/or counseling patient:
[2020-12-25] MEDS: ATORVASTATIN 40 MG TABLET PO SCH (20:45)
[2020-12-25] MEDS: LORazepam 0.5 MG TABLET PO SCH (20:46)
[2020-12-25] MEDS: SENNOSIDES 1 TABLET PO SCH (20:46)
[2020-12-25] MEDS: amLODIPine 5 MG TABLET PO SCH (20:47)
[2020-12-26] MEDS: oxyCODONE HCL 5 MG TABLET PO PRN ×2 (01:40→10:12)
[2020-12-26 06:45] LABS: Basophils # (Auto) 0.01 K/mcL (0.00-0.20); Basophils % (Auto) 0.2 % (0.0-2.0); Eosinophils # (Auto) 0.07 K/mcL (0.00-0.70); Eosinophils % (Auto) 1.3 % (0.0-7.0); Hematocrit 29.7 % (41.0-55.0); Hemoglobin 9.6 g/dL (13.5-16.5); Lymphocytes # (Auto) 1.37 K/mcL (1.50-4.80); Mean Cell Volume 106.8 fL (80.0-100.0); Mean Corpuscular HGB Conc 32.3 g/dL (31.0-36.0); Monocytes # (Auto) 0.74 K/mcL (0.10-0.90); Monocytes % (Auto) 13.5 % (1.0-12.0); Platelet Count 185 K/mcL (140-440); RBC 2.78 M/mcL (4.50-5.90); Red Cell Distribution Width 13.3 % (11.5-14.5); WBC 5.5 K/mcL (4.5-11.0)
--- NOTE | 2020-12-26 07:30 | Nephrology Progress Note ---
SUBJECTIVE Subjective Patient information: Note initiated : 12/26/20 at 7:29 am Service Date, if different from initiated Date: [] Patient: Justin Simmons 85 y/o M admitted on 12/22/20 for High CRE, Flank Pain. Chief Complaint: [Abnormal pre-op labs] Interval Hx: Baseline Scr ~2.0 mg/dl with HTN and renovascular Dx (Left ANTON). Recently hospitalized at [facility] and underwent LHC and VADIM placement with no evidence of acute decline in GFR. C/O right flank and back pain but initial CT reported LEFT UPJ stone with mild hydro. Preop labs with marked increase in SCr 2=>6 mg/dl Intial read of CT 12/22/2020 reported Right nonobstructing lower pole stone and left w/o stone which added to confusion. Once the patient found and placed his hearing aids in, he could understand and answere questions => Specifically that he was taking IBUPROFEN for LBP and recently started on LISINOPRIL and now with ARF on CKD 4. May be a component of obstructive uropathy as well. Improved GFR with SCr dropping from 6 to 3.4 mg/dl (Baseline 2.0). May have an element of left obstructive uropathy Removed madrigal and stop IVF 12/25/2020: Laboratory Tests 12/26/20 05:42 Sodium 139 Potassium 4.9 Chloride 109 H Carbon Dioxide 21 L Anion Gap 9.0 BUN 46 H Creatinine 2.8 H GFR Calculation 19 Glucose 93 Calcium 8.9 Phosphorus 3.6 Albumin 3.0 L Up in chair shaving and looking good. Constitutional Vitals: Vital Signs Temp Pulse Resp BP Pulse Ox 36.7 C 54 L 18 136/62 92 12/26/20 04:00 12/26/20 04:00 12/26/20 04:00 12/26/20 04:00 12/26/20 04:00 Period Temp Pulse Resp BP Sys/Peña Pulse Ox Last 24 Hr 36.3 C-37.2 C 44-69 16-18 104-156/51-79 92-96 Intake and Output 12/25/20 12/26/20 12/26/20 21:59 05:59 13:59 Intake Total 720 400 Output Total 600 1 Balance 120 399 Weight 88.178 kg Intake & Output: Intake & Output 12/25/20 12/26/20 12/26/20 21:59 05:59 13:59 Intake Total 720 400 Output Total 600 1 Balance 120 399 Weight 88.178 kg Intake: Oral 720 400 Output: Urine Catheter Amount 600 # of times incontinent of urine 1 Other: Meal Dinner Percent of Meal Consumed 100% Urine Appearance Clear Clear Urine Color Bright Yellow Pale Urine Odor Normal # Voids 1 1 General appearance: cooperative, no acute distress and obese Exam: Exam: General appearance: no acute distress and obese Exam: Exam: General Appearance General appearance: obese, moderate distress, chronically ill and frail EENT: ATNC, PERRL and hearing intact (bilateral hearing aids) Neck: no JVD and no carotid bruit Respiratory: kyphosis and rhonchi Cardiology: no murmurs, no gallops, edema (trace), regular rhythm, rapid rhythm (8 beat mikey of wide complex tachycardia while I was seeing him...no sx), normal S1 and normal S2 Gastrointestinal: normoactive bowel sounds, no guarding and obese : No CVAT Integumentary: warm and dry and hyperkeratosis Neurologic: no focal deficit, no asterixis and CN 3-12 intact Musculoskeletal: no erythema, no cyanosis, no clubbing (+) paraspinal back tenderness Psychiatric: mood/affect appropriate Additional exam: No atheroembolic lesions in toes or fingers A/P Assessment and plan (1) Renal failure (ARF), acute on chronic: Status: Acute Comment: Tolerated LHC and IV contrast procedure 11/16/2020 at [facility] w/o change in GFR In late Apr, 2019 had an episode of acute renal failure with peak creatinine of 5.5 mg/dL that improved with hydration while hospitalized at [facility]. Current episode of acute renal failure has occurred over the span of 6 days with serum creatinine going from 1.9 to 6.0 mg/dL. Qualifiers: Acute renal failure type: unspecified Chronic kidney disease stage: stage 4 (severe) Qualified Code(s): N17.9 - Acute kidney failure, unspecified; N18.4 - Chronic kidney disease, stage 4 (severe) (2) Left renal stone: Status: Acute Comment: I do not see a right renal stone, just left stone with mild hydro Needs urologic intervention (3) CKD stage 4 secondary to hypertension: Status: Acute Comment: CKD 4 due to HTN and vascular disease. Non-nephrotic proteinuria. Baseline SCr ~2.0 Left renal artery stent is present (4) CAD (coronary artery disease) of bypass graft: Status: Acute Comment: Recent PCI and VADIM in SVG at [facility] Qualifiers: [place] vs. transplanted heart: [place] heart Associated angina: unspecified whether angina present Qualified Code(s): I25.810 - Atherosclerosis of coronary artery bypass graft(s) without angina pectoris (5) Dementia: Status: Acute Comment: Hold aricept while we adjust B-mati dose due to risk of bradycardia Qualifiers: Dementia type: vascular dementia Dementia behavioral disturbance: without behavioral disturbance Qualified Code(s): F01.50 - Vascular dementia without behavioral disturbance (6) Hypertensive renovascular disease: Status: Acute Comment: Left ANTON with stent Calcification of vasculature Narrative A/P Narrative: A/P Narrative: Assessment and plan (1) CKD stage 4 secondary to hypertension: (2) Renal failure (ARF), acute on chronic: (3) Left renal stone: (4) Hypertensive renovascular disease: (5) CAD (coronary artery disease) of bypass graft: with recent PTCA and VADIM deployment 10/2020 at [facility] (6) Dementia: Vascular on Rx A/P Narrative: 1. This is not IV contrast associated ATN. 2. Ultimately this is a combination of dehydration (similar to the episode in April 2019) worsened by ADY inhibitor therapy and NSAIDs. 3. Patient has nephrolithiasis with left UPJ stone which was evident on the CT of 12/16/2020 and still present on the 12/22/2020 CT but the interpretation seems to be an error as I see no right sided stone 4. CT scan or more appropriately would be to have the radiologist correct the CT interpretation. 5. Recommend proceeding with left ureteral stent placement to relieve the obstruction and continue hydration in this patient 6. He is avoid any RAASI therapy, his lisinopril has already been discontinued, and do not attempt to get this patient on nonsteroidal anti-inflammatory 7. The combination of ACEi and NSAIDs is angel to the cause of ARF...do not dischage on these Rx 8. Since this patient had PTCA and VADIM deployment 1 month ago, I favor just placing a stent and keeping him on Plavix for 3 months total at which time we can do some sort of definitive treatment on his kidney stone while stopping the Plavix for a few days. 9. GFR improving and approaching baseline SCr of 2.0 mg.dl 10. No objection to D/C at this time with Urology follow up. Time Spent With Patient Time: Total time spent is greater than 50% in coordination of care (as documented) at patient's floor/unit and/or counseling patient:
[2020-12-26 07:40] LABS: Blood Urea Nitrogen 46 mg/dL (8-23); Calcium 8.9 mg/dL (8.6-10.4); Carbon Dioxide 21 mmol/L (22-30); Chloride 109 mmol/L (96-108); Glomerular Filtration Rate 19; Glucose 93 mg/dL (70-105); Phosphorous 3.6 mg/dL (2.5-4.5)
[2020-12-26] MEDS: MEMANTINE 10 MG TABLET PO SCH ×2 (08:22→21:06)
[2020-12-26] MEDS: ASPIRIN 81 MG TAB.CHEW PO SCH (08:22)
[2020-12-26] MEDS: CLOPIDOGREL 75 MG TABLET PO SCH (08:22)
[2020-12-26] MEDS: DOCUSATE SODIUM 100 MG CAPSULE PO SCH ×2 (08:22→21:04)
[2020-12-26] MEDS: VIT A,C & E/LUTEIN/MINERALS TABLET PO SCH (08:22)
[2020-12-26] MEDS: SERTRALINE 50 MG TABLET PO SCH (08:23)
[2020-12-26] MEDS: TAMSULOSIN 0.4 MG CAPSULE PO SCH ×2 (08:23→21:05)
[2020-12-26] MEDS: amLODIPine 10 MG TABLET PO SCH (08:23)
[2020-12-26] MEDS: ISOSORBIDE MONONITRATE 30 MG TAB.XL.24H PO SCH (08:23)
[2020-12-26] MEDS: METOPROLOL TARTRATE 50 MG TABLET PO SCH ×2 (08:23→21:06)
[2020-12-26] MEDS: GABAPENTIN 300 MG CAPSULE PO SCH ×3 (08:23→21:05)
[2020-12-26] MEDS: VITAMIN D3 1,000 UNIT TABLET PO SCH (08:23)
--- NOTE | 2020-12-26 11:55 | Internal Med Progress Note ---
SUBJECTIVE Subjective Patient information: Note initiated : 12/26/20 at 11:52 am Service Date, if different from initiated Date: [] Patient: Justin Simmons a 85 y/o M admitted on 12/22/20 for High CRE, Flank Pain. Chief Complaint: [] Interval history: History of present illness: Mr. Simmons is a 85 year old M history of CAD status post CABG, chronic kidney disease stage IV, advanced dementia, presenting with acute kidney injury with elevated serum creatinine level. Patient baseline serum creatinine level was 2.3 a week ago but today it is 6.5. He was recently been diagnosed with bilateral kidney stones (6mm diameter in left ureteropelvic junction, and 7mm diameter in right renal pelvis. He is scheduled to be seen by urologist and have lithotripsy procedures to have the stone removed but as part of the preoperative evaluations he was Found to have elevated serum creatinine level. As a result, the planned lithotripsy procedure was postponed and patient was instead asked to come to the ED for further evaluation and treatment. CT of the abdomen pelvis again showing those kidney stones. UA suggests against the presence of urinary tract infections. Patient is not septic. Patient is complaining of the right lower rib cage pain secondary to a fall that happened 2 to 3 days ago. No rib fractures was identified. 12/24-patient clinically improving. Nephrology on board. Potassium down to 4.6, creatinine down to 3.5 from 4.5, bilateral nonobstructive renal stone on imaging. Restarted on home medication except for ADY inhibitor. Troponin unchanged. No other concerns expressed by nursing staff. 12/25-patient doing well. at bedside. Creatinine at 3.4. Nephrology on board. No overnight events. No additional concerns per nursing staff. Ongoing therapies. Intermittently oriented, Thomason is draining clear urine. DC'd IV line. Cardiac monitoring discontinued. Pain well controlled. No overnight fever chills nausea vomiting or concerns per staff 12/26-patient doing well. No overnight events. Creatinine down to 2.8. Nephrology on board. Will likely discharge Saturday 4 hours. No overnight fever chills. Hard of hearing. at bedside. No active concerns.On magnesium replacement. Constitutional Vitals: Vital Signs Temp Pulse Resp BP Pulse Ox 97.6 F 60 20 131/57 94 12/26/20 08:00 12/26/20 08:00 12/26/20 08:00 12/26/20 08:00 12/26/20 08:00 Period Temp Pulse Resp BP Sys/Peña Pulse Ox Last 24 Hr 97.3 F-98.9 F 44-69 16-20 104-156/51-79 92-96 Intake and Output 12/25/20 12/26/20 12/26/20 21:59 05:59 13:59 Intake Total 720 400 Output Total 600 1 301 Balance 120 399 -301 Weight 88.178 kg Alert and respond to commands Nonlabored breathing No anxiety No lymphedema Intake & Output: Intake & Output 12/25/20 12/26/20 12/26/20 21:59 05:59 13:59 Intake Total 720 400 Output Total 600 1 301 Balance 120 399 -301 Weight 88.178 kg Intake: Oral 720 400 Output: Urine Catheter Amount 600 Void Amount 300 # of times incontinent of urine 1 1 Other: Meal Dinner Percent of Meal Consumed 100% Urine Appearance Clear Clear Clear Urine Color Bright Yellow Pale Bright Yellow Urine Odor Normal Normal # Voids 1 1 1 OBJ DATA Labs CBC & Chem 7: 12/26/20 05:42 12/26/20 05:42 Labs: Abnormal Lab Results 12/26/20 12/26/20 12/25/20 05:42 05:42 05:37 RBC 2.78 L Hgb 9.6 L Hct 29.7 L MCV 106.8 H MCH 34.5 H [place] % (Auto) 13.5 H Lymph # (Auto) 1.37 L Chloride 109 H Carbon Dioxide 21 L 20 L Anion Gap 7.0 L BUN 46 H 46 H Creatinine 2.8 H 3.4 H Calcium Albumin 3.0 L Globulin Albumin/Globulin Ratio 12/24/20 11:35 RBC Hgb Hct MCV MCH [place] % (Auto) Lymph # (Auto) Chloride 110 H Carbon Dioxide 17 L Anion Gap BUN 42 H Creatinine 3.5 H Calcium 8.3 L Albumin 2.8 L Globulin 3.9 H Albumin/Globulin Ratio 0.7 L Meds: Medications Acetaminophen (Acetaminophen 325 Mg Tablet) 650 mg PO Q6HP PRN; Protocol PRN Reason: Per Pain Protocol/Fever > 101 Last Admin: 12/24/20 19:31 Dose: 650 mg Documented by: Amlodipine Besylate (Amlodipine 5 Mg Tablet) 5 mg PO HS MONICA Last Admin: 12/25/20 20:47 Dose: 5 mg Documented by: Amlodipine Besylate (Amlodipine 10 Mg Tablet) 10 mg PO DAILY COUNTS INCLUDE 234 BEDS AT THE [facility] Last Admin: 12/26/20 08:23 Dose: 10 mg Documented by: Aspirin (Aspirin 81 Mg Tab.Chew) 81 mg PO DAILY COUNTS INCLUDE 234 BEDS AT THE [facility] Last Admin: 12/26/20 08:22 Dose: 81 mg Documented by: Atorvastatin Calcium (Atorvastatin 40 Mg Tablet) 40 mg PO [facility] Last Admin: 12/25/20 20:45 Dose: 40 mg Documented by: Clopidogrel Bisulfate (Clopidogrel 75 Mg Tablet) 75 mg PO QDAY COUNTS INCLUDE 234 BEDS AT THE [facility] Last Admin: 12/26/20 08:22 Dose: 75 mg Documented by: Docusate Sodium (Docusate Sodium 100 Mg Capsule) 100 mg PO BID COUNTS INCLUDE 234 BEDS AT THE [facility] Last Admin: 12/26/20 08:22 Dose: 100 mg Documented by: Gabapentin (Gabapentin 300 Mg Capsule) 300 mg PO TID COUNTS INCLUDE 234 BEDS AT THE [facility] Last Admin: 12/26/20 08:23 Dose: 300 mg Documented by: Hydromorphone HCl (Hydromorphone 0.5 Mg/0.5 Ml Syringe) 0.5 mg IV Q4HP PRN; Protocol PRN Reason: Per Pain Protocol Last Admin: 12/23/20 01:25 Dose: 0.5 mg Documented by: Isosorbide Mononitrate (Isosorbide Mononitrate 30 Mg Tab.Xl.24h) 30 mg PO QAM COUNTS INCLUDE 234 BEDS AT THE [facility] Last Admin: 12/26/20 08:23 Dose: 30 mg Documented by: Lorazepam (Lorazepam 0.5 Mg Tablet) 0.5 mg PO [facility] Last Admin: 12/25/20 20:46 Dose: 0.5 mg Documented by: Magnesium Oxide (Magnesium Oxide 400 Mg Tablet) 400 mg PO DAILY COUNTS INCLUDE 234 BEDS AT THE [facility] Memantine (Memantine 10 Mg Tablet) 10 mg PO BID COUNTS INCLUDE 234 BEDS AT THE [facility] Last Admin: 12/26/20 08:22 Dose: 10 mg Documented by: Metoprolol Tartrate (Metoprolol Tartrate 50 Mg Tablet) 50 mg PO BID COUNTS INCLUDE 234 BEDS AT THE [facility] Last Admin: 12/26/20 08:23 Dose: 50 mg Documented by: Multivitamins/Minerals (Vit A,C & E/Lutein/Minerals Tablet) 1 tab PO DAILY COUNTS INCLUDE 234 BEDS AT THE [facility] Last Admin: 12/26/20 08:22 Dose: 1 tab Documented by: Nitroglycerin (Nitroglycerin 0.4 Mg Tab.Subl) 0.4 mg SL Q5M PRN PRN Reason: Chest Pain Last Admin: 12/23/20 01:00 Dose: 0.4 mg Documented by: Ondansetron HCl (Ondansetron 4 Mg/2 Ml Vial) 4 mg IV Q6HP PRN PRN Reason: Nausea And Vomiting Oxycodone HCl (Oxycodone Hcl 5 Mg Tablet) 10 mg PO Q4HP PRN; Protocol PRN Reason: Per Pain Protocol Last Admin: 12/26/20 10:12 Dose: 10 mg Documented by: Senna (Sennosides 1 Tablet) 2 tab PO HS COUNTS INCLUDE 234 BEDS AT THE [facility] Last Admin: 12/25/20 20:46 Dose: 2 tab Documented by: Sertraline HCl (Sertraline 50 Mg Tablet) 50 mg PO QDAY COUNTS INCLUDE 234 BEDS AT THE [facility] Last Admin: 12/26/20 08:23 Dose: 50 mg Documented by: Tamsulosin HCl (Tamsulosin 0.4 Mg Capsule) 0.4 mg PO BID COUNTS INCLUDE 234 BEDS AT THE [facility] Last Admin: 12/26/20 08:23 Dose: 0.4 mg Documented by: Trazodone HCl (Trazodone Hcl 50 Mg Tablet) 25 mg PO HSP PRN PRN Reason: Insomnia Vitamin D (Vitamin D3 1,000 Unit Tablet) 2,000 unit PO DAILY COUNTS INCLUDE 234 BEDS AT THE [facility] Last Admin: 12/26/20 08:23 Dose: 2,000 unit Documented by: A/P Narrative A/P Narrative: * Acute on chronic kidney disease. Managed by nephrology. Creatinine downtrending from 4.5-3.5-> 2.8. ADY and NSAIDs discontinued * Nonobstructive bilateral renal stone will follow up with Dr. Barrios as outpatient on discharge * History of dementia continue donepezil * Low magnesium on replacement * History of CAD status post CABG continue aspirin/Plavix/Imdur/beta- mati/Crestor * Hypertension-Management per nephrology. * Anxiety disorder continue sertraline * Prophylaxis SCDs Plan * Continue renal failure management per nephrology * Other pre-existing medical condition management home medications * Replace magnesium * PT OT/nutrition support * Discharge planning pending improvement in renal function Time Spent With Patient Time: Total time spent is greater than 50% in coordination of care (as documented) at patient's floor/unit and/or counseling patient:
[2020-12-26] MEDS: LORazepam 0.5 MG TABLET PO SCH (21:03)
[2020-12-26] MEDS: SENNOSIDES 1 TABLET PO SCH (21:05)
[2020-12-26] MEDS: ATORVASTATIN 40 MG TABLET PO SCH (21:06)
[2020-12-26] MEDS: amLODIPine 5 MG TABLET PO SCH (21:06)
[2020-12-27] MEDS: ACETAMINOPHEN 325 MG TABLET PO PRN (01:13)
[2020-12-27] MEDS: oxyCODONE HCL 5 MG TABLET PO PRN ×2 (08:25→13:12)
[2020-12-27] MEDS: GABAPENTIN 300 MG CAPSULE PO SCH (08:27)
[2020-12-27] MEDS: CLOPIDOGREL 75 MG TABLET PO SCH (08:27)
[2020-12-27] MEDS: TAMSULOSIN 0.4 MG CAPSULE PO SCH (08:27)
[2020-12-27] MEDS: SERTRALINE 50 MG TABLET PO SCH (08:27)
[2020-12-27] MEDS: ASPIRIN 81 MG TAB.CHEW PO SCH (08:27)
[2020-12-27] MEDS: DOCUSATE SODIUM 100 MG CAPSULE PO SCH (08:28)
[2020-12-27] MEDS: VIT A,C & E/LUTEIN/MINERALS TABLET PO SCH (08:28)
[2020-12-27] MEDS: MEMANTINE 10 MG TABLET PO SCH (08:29)
[2020-12-27] MEDS: amLODIPine 10 MG TABLET PO SCH (08:29)
[2020-12-27] MEDS: VITAMIN D3 1,000 UNIT TABLET PO SCH (08:29)
[2020-12-27] MEDS: METOPROLOL TARTRATE 50 MG TABLET PO SCH (08:29)
[2020-12-27] MEDS: ISOSORBIDE MONONITRATE 30 MG TAB.XL.24H PO SCH (08:30)
--- NOTE | 2020-12-27 10:29 | Discharge Summary ---
Discharge Provider Provider Patient information: Note initiated : 12/27/20 at 10:24 am Service Date, if different from initiated Date: [] Patient: Justin Simmons a 85 y/o M admitted on 12/22/20 for High CRE, Flank Pain. Discharge diagnosis * Acute on chronic kidney disease. Managed by nephrology. Creatinine downtrending from 4.5-3.5-> 2.8. ADY and NSAIDs discontinued * Nonobstructive bilateral renal stone will follow up with Dr. Barrios as outpatient on discharge * History of dementia continue donepezil * Low magnesium on replacement * History of CAD status post CABG continue aspirin/Plavix/Imdur/beta- mati/Crestor * Hypertension-Management per nephrology. * Anxiety disorder continue sertraline Brief hospital course History of present illness: Mr. Simmons is a 85 year old M history of CAD status post CABG, chronic kidney disease stage IV, advanced dementia, presenting with acute kidney injury with elevated serum creatinine level. Patient baseline serum creatinine level was 2.3 a week ago but today it is 6.5. He was recently been diagnosed with bilateral kidney stones (6mm diameter in left ureteropelvic junction, and 7mm diameter in right renal pelvis. He is scheduled to be seen by urologist and have lithotripsy procedures to have the stone removed but as part of the preoperative evaluations he was Found to have elevated serum creatinine level. As a result, the planned lithotripsy procedure was postponed and patient was instead asked to come to the ED for further evaluation and treatment. CT of the abdomen pelvis again showing those kidney stones. UA suggests against the presence of urinary tract infections. Patient is not septic. Patient is complaining of the right lower rib cage pain secondary to a fall that happened 2 to 3 days ago. No rib fractures was identified. 12/24-patient clinically improving. Nephrology on board. Potassium down to 4.6, creatinine down to 3.5 from 4.5, bilateral nonobstructive renal stone on imaging. Restarted on home medication except for ADY inhibitor. Troponin unchanged. No other concerns expressed by nursing staff. 6-patient doing well. at bedside. Creatinine at 3.4. Nephrology on board. No overnight events. No additional concerns per nursing staff. Ongoing therapies. Intermittently oriented, Thomason is draining clear urine. DC'd IV line. Cardiac monitoring discontinued. Pain well controlled. No overnight fever chills nausea vomiting or concerns per staff 12/26-patient doing well. No overnight events. Creatinine down to 2.8. Nephrology on board. Will likely discharge Saturday 4 hours. No overnight fever chills. Hard of hearing. at bedside. No active concerns.On magnesium replacement. 12/27-patient doing a lot better. No overnight events. No concerns per staff. No fever chills nausea vomiting. Discharging to SNF with advised to continue holding ADY inhibitor/NSAIDs and recommend follow-up with nephrology as outpatient. Continue PT OT/nutrition support. Follow-up with urology as outpatient for renal stone management Date of admission: 12/22/20 15:00 Discharge date: 12/27/20 Primary care physician: Karthik De Leon Consults: 12/22/20 Consult to Physician [CONS] Stat Comment: Consulting Provider: Anand Nixon Reason For Exam: Physician to Consult Consult to Physician [CONS] Stat Comment: Consulting Provider: Jas Johnson Reason For Exam: Physician to Consult 12/22/20 11:22 Consult to Physician [CONS] Stat Comment: Consulting Provider: Jaron Renee Reason For Exam: Physician to Consult Discharge Meds Discharge Medications Home Medications cholecalciferol (vitamin D3) 50 mcg (2,000 unit) capsule 50 mcg PO QDAY 10/22/19 [History Confirmed 12/23/20 Last Taken 12/21/20] clopidogrel 75 mg tablet 75 mg PO QDAY 10/22/19 [History Confirmed 12/23/20 Last Taken Unknown] coenzyme Q10 100 mg capsule 300 mg PO QDAY 10/22/19 [History Confirmed 12/23/20 Last Taken Unknown] metoprolol tartrate 50 mg tablet 50 mg PO BID 10/22/19 [History Confirmed 12/23/20 Last Taken 12/21/20] rosuvastatin 10 mg tablet 40 mg PO HS 10/22/19 [History Confirmed 12/23/20 Last Taken 12/21/20] sertraline 50 mg tablet 50 mg PO QDAY 10/22/19 [History Confirmed 12/23/20 Last Taken 12/22/20] vitamin A-vitamin C-vit E-min tablet 1 tab PO .COMPLEX 10/22/19 [History Confirmed 12/23/20 Last Taken 12/21/20] acetaminophen [Acetaminophen Extra Strength] 1,000 mg PO Q6H PRN 12/20/20 [History Confirmed 12/23/20 Last Taken 12/22/20] aspirin 81 mg PO QDAY 12/20/20 [History Confirmed 12/23/20 Last Taken Unknown] isosorbide mononitrate 30 mg PO QAM 12/20/20 [History Confirmed 12/23/20 Last Taken 12/22/20] nitroglycerin 0.4 mg SUBLINGUAL Q5M PRN 12/20/20 [History Confirmed 12/23/20 Last Taken Unknown] gabapentin 300 mg PO TID 12/23/20 [History Confirmed 12/23/20 Last Taken Unknown] amlodipine 10 mg PO DAILY #15 tab 12/27/20 [Rx Last Taken Unknown] lorazepam 0.5 mg PO QHS PRN #5 tab 12/27/20 [Rx Last Taken Unknown] magnesium oxide 400 mg PO DAILY #15 tab 12/27/20 [Rx Last Taken Unknown] oxycodone 10 mg PO Q4HP PRN #15 tab 12/27/20 [Rx Last Taken Unknown] tamsulosin 0.4 mg PO BID #15 cap 12/27/20 [Rx Last Taken Unknown] COURSE Hospital Course Hospital course: . Discharge diagnosis: . Time Spent with Patient Time attestation: Total time spent providing and/or coordinating discharge services: EXAM Constitutional Vitals: Temp Pulse Resp BP Pulse Ox 97.4 F 85 14 148/67 96 12/27/20 08:00 12/27/20 08:00 12/27/20 08:00 12/27/20 08:00 12/27/20 08:00 Discharge Plan Patient/Caregiver Discharge Instructions Activity: increase activity as tolerated Diet: Renal Instructions: Amlodipine (By mouth), Tamsulosin (By mouth), Magnesium Oxide (By mouth), Acute Kidney Injury (DC) Activity Restrictions/Additional Instructions: Resume home diet as tolerated. Take all meals up in chair, sitting at 90 degrees, to prevent aspiration. Increase activity as tolerated. Continue fall precautions. Continue PT and OT at SNF. Follow-up with urology for evaluation and management of bilateral nephrolithiasis. Take all medication as directed. Your prescription is with your discharge paperwork. Avoid NSAIDs/ADY inhibitor. Pain medication can cause constipation; take an over the counter stool softener and/or laxative while on pain medication. Take your prescription, insurance cards, and photo ID to picker packer your medication. Return to ER for fever, chills, uncontrolled pain, inability to urinate or have a bowel movement, nausea and/or vomiting, swelling, redness, signs of infection, shortness of breath, chest pain, return of symptoms, or other acute symptom. This discharge packet is provided to you to help keep you informed about your care. We want to ensure you get everything you need when you go home. You will also be receiving a call from us in a few days to follow up with you and see how you are doing since your discharge. This gives us a chance to listen to any concerns you maybe experiencing since you were discharged or any additional needs you may have, as well as providing us feedback on your care experience. We strive to always provide excellent care and thank you for your feedback and for choosing [facility]. Prescriptions: New magnesium oxide 400 mg (241.3 mg magnesium) Tablet 400 mg PO DAILY Qty: 15 RF: 0 tamsulosin 0.4 mg Capsule 0.4 mg PO BID Qty: 15 RF: 0 amlodipine 10 mg Tablet 10 mg PO DAILY Qty: 15 RF: 0 oxycodone 5 mg Tablet 10 mg PO Q4HP PRN (Reason: Per Pain Protocol) Qty: 15 RF: 0 Continued clopidogrel 75 mg tablet 75 mg PO QDAY RF: 0 coenzyme Q10 [CoQ-10] 100 mg capsule 300 mg PO QDAY RF: 0 metoprolol tartrate 50 mg tablet 50 mg PO BID RF: 0 vitamin A-vitamin C-vit E-min Tablet 1 tab PO .COMPLEX RF: 0 rosuvastatin 10 mg tablet 40 mg PO HS RF: 0 sertraline 50 mg tablet 50 mg PO QDAY RF: 0 cholecalciferol (vitamin D3) 50 mcg (2,000 unit) capsule 50 mcg PO QDAY RF: 0 isosorbide mononitrate 30 mg Tablet Extended Release 24 Hr 30 mg PO QAM RF: 0 acetaminophen [Acetaminophen Extra Strength] 500 mg Tablet 1,000 mg PO Q6H PRN (Reason: Pain) RF: 0 nitroglycerin 0.4 mg Tablet, Sublingual 0.4 mg SUBLINGUAL Q5M PRN (Reason: Angina) RF: 0 aspirin 81 mg Tablet 81 mg PO QDAY RF: 0 gabapentin 300 mg Capsule 300 mg PO TID RF: 0 lorazepam 0.5 mg Tablet 0.5 mg PO QHS PRN (Reason: Anxiety) Qty: 5 RF: 0 Discontinued amlodipine 5 mg tablet 5 - 10 mg PO QDAY RF: 0 memantine 10 mg tablet 10 mg PO BID RF: 0 donepezil 10 mg Tablet 10 mg PO QDAY RF: 0 lisinopril 5 mg tablet 5 mg PO DAILY RF: 0 Other Ambulatory Orders: OT Discharge Order (Routine) Location: None Selected Ordered By: Rosas Brewer Physical Therapy at Discharge - General (Routine) Location: None Selected Ordered By: Rosas Brewer Follow Up Plan Follow up with: Karthik De Leon DO [Primary Care Provider] - 01/05/21 1:45 pm (Check-in at 1:45 pm) Anand Nixon MD [Physician] - 01/12/21 1:15 pm (Check-in at 1:15 pm) David Barrios MD [Physician] - 01/06/21 1:15 pm () Patient Disposition: Xfer SNF Prognosis: Fair Rehab Potential: Fair I certify that the patient requires SNF services: Yes Overall status at discharge: patient is progressing back to baseline Discharge Orders: Discharge Order (Routine); Ordered 12/27/20 Ordered By: Rosas Brewer
[2020-12-27] MEDS ORDERED: MAGNESIUM OXIDE 400 MG TABLET PO SCH (11:00)
--- NOTE | 2020-12-27 13:44 | Nephrology Progress Note ---
SUBJECTIVE Subjective Patient information: Note initiated : 12/27/20 at 1:44 pm Service Date, if different from initiated Date: [] Patient: Justin Simmons 85 y/o M admitted on 12/22/20 for High CRE, Flank Pain. Chief Complaint: [abnl labs pre-op] nterval Hx: Baseline Scr ~2.0 mg/dl with HTN and renovascular Dx (Left ANTON). Recently hospitalized at [facility] and underwent LHC and VADIM placement with no evidence of acute decline in GFR. C/O right flank and back pain but initial CT reported LEFT UPJ stone with mild hydro. Preop labs with marked increase in SCr 2=>6 mg/dl Intial read of CT 12/22/2020 reported Right nonobstructing lower pole stone and left w/o stone which added to confusion. Once the patient found and placed his hearing aids in, he could understand and answere questions => Specifically that he was taking IBUPROFEN for LBP and recently started on LISINOPRIL and now with ARF on CKD 4. May be a component of obstructive uropathy as well. Improved GFR with SCr dropping from 6 to 3.4 mg/dl (Baseline 2.0). May have an element of left obstructive uropathy Removed madrigal and stop IVF 12/25/2020 with PVR 200 cc Vital Signs Temp Pulse Pulse Resp BP BP Pulse Ox 12/27/20 13:17 36.4 C 58 L 14 109/57 96 12/27/20 08:00 36.3 C 85 14 148/67 96 12/27/20 03:58 36.6 C 58 L 14 142/70 94 12/26/20 23:42 36.9 C 66 14 156/68 91 12/26/20 19:18 36.7 C 63 14 151/71 95 12/26/20 16:00 36.8 C 60 18 133/65 93 Serum Creatinine Constitutional Vitals: Vital Signs Temp Pulse Resp BP Pulse Ox 36.4 C 58 L 14 109/57 96 12/27/20 13:17 12/27/20 13:17 12/27/20 13:17 12/27/20 13:17 12/27/20 13:17 Period Temp Pulse Resp BP Sys/Peña Pulse Ox Last 24 Hr 36.3 C-36.9 C 58-85 14-18 109-156/57-71 91-96 Intake and Output 12/26/20 12/27/20 12/27/20 21:59 05:59 13:59 Intake Total 100 700 Output Total 450 975 Balance -350 -275 [facility] [address] [facility] [address] [facility] [place] 1935 [address]Service Date:12/22/20 Admit Date: 12/22/20 [place], [place] [address]Sdnvzn # [id number] Rosas Brewer M.D. MR #: [id number] Discharge SummaryDraft Discharge Provider Provider Patient information: Note initiated : 12/27/20 at 10:24 am Service Date, if different from initiated Date: [] Patient: Justin Simmons 85 y/o M admitted on 12/22/20 for High CRE, Flank Pain. Discharge diagnosis Acute on chronic kidney disease. Managed by nephrology. Creatinine downtrending from 4.5-3.5-> 2.8. ADY and NSAIDs discontinued Nonobstructive bilateral renal stone will follow up with Dr. Barrios as outpatient on discharge History of dementia continue donepezil Low magnesium on replacement History of CAD status post CABG continue aspirin/Plavix/Imdur/beta- mati/Crestor Hypertension-Management per nephrology. Anxiety disorder continue sertraline Brief hospital course History of present illness: Mr. Simmons is a 85 year old M history of CAD status post CABG, chronic kidney disease stage IV, advanced dementia, presenting with acute kidney injury with elevated serum creatinine level. Patient baseline serum creatinine level was 2.3 a week ago but today it is 6.5. He was recently been diagnosed with bilateral kidney stones (6mm diameter in left ureteropelvic junction, and 7mm diameter in right renal pelvis. He is scheduled to be seen by urologist and have lithotripsy procedures to have the stone removed but as part of the preoperative evaluations he was Found to have elevated serum creatinine level. As a result, the planned lithotripsy procedure was postponed and patient was instead asked to come to the ED for further evaluation and treatment. CT of the abdomen pelvis again showing those kidney stones. UA suggests against the presence of urinary tract infections. Patient is not septic. Patient is complaining of the right lower rib cage pain secondary to a fall that happened 2 to 3 days ago. No rib fractures was identified. 12/24-patient clinically improving. Nephrology on board. Potassium down to 4.6, creatinine down to 3.5 from 4.5, bilateral nonobstructive renal stone on imaging. Restarted on home medication except for ADY inhibitor. Troponin unchanged. No other concerns expressed by nursing staff. 12/25-patient doing well. at bedside. Creatinine at 3.4. Nephrology on board. No overnight events. No additional concerns per nursing staff. Ongoing therapies. Intermittently oriented, Madrigal is draining clear urine. DC'd IV line. Cardiac monitoring discontinued. Pain well controlled. No overnight fever chills nausea vomiting or concerns per staff 12/26-patient doing well. No overnight events. Creatinine down to 2.8. Nephrology on board. Will likely discharge Saturday 4 hours. No overnight fever chills. Hard of hearing. at bedside. No active concerns.On magnesium replacement. 12/27-patient doing a lot better. No overnight events. No concerns per staff. N o fever chills nausea vomiting. Discharging to SNF with advised to continue holding ADY inhibitor/NSAIDs and recommend follow-up with nephrology as outpatient. Continue PT OT/nutrition support. Follow-up with urology as outpatient for renal stone management Date of admission: 12/22/20 15:00 Primary care physician: Karthik De Leon Consults: 12/22/20 Consult to Physician [CONS] Stat Comment: Consulting Provider: Anand Nixon Reason For Exam: Physician to Consult Consult to Physician [CONS] Stat Comment: Consulting Provider: Jas Johnson Reason For Exam: Physician to Consult 12/22/20 11:22 Consult to Physician [CONS] Stat Comment: Consulting Provider: Jaron Renee Reason For Exam: Physician to Consult Discharge Medications Home Medications cholecalciferol (vitamin D3) 50 mcg (2,000 unit) capsule 50 mcg PO QDAY 10/22/19 [History Confirmed 12/23/20 Last Taken 12/21/20] clopidogrel 75 mg tablet 75 mg PO QDAY 10/22/19 [History Confirmed 12/23/20 Last Taken Unknown] coenzyme Q10 100 mg capsule 300 mg PO QDAY 10/22/19 [History Confirmed 12/23/20 Last Taken Unknown] memantine 10 mg tablet 10 mg PO BID 10/22/19 [History Confirmed 12/23/20 Last Taken 12/21/20] metoprolol tartrate 50 mg tablet 50 mg PO BID 10/22/19 [History Confirmed 12/23/20 Last Taken 12/21/20] rosuvastatin 10 mg tablet 40 mg PO HS 10/22/19 [History Confirmed 12/23/20 Last Taken 12/21/20] sertraline 50 mg tablet 50 mg PO QDAY 10/22/19 [History Confirmed 12/23/20 Last Taken 12/22/20] vitamin A-vitamin C-vit E-min tablet 1 tab PO .COMPLEX 10/22/19 [History Confirmed 12/23/20 Last Taken 12/21/20] acetaminophen [Acetaminophen Extra Strength] 1,000 mg PO Q6H PRN 12/20/20 [ History Confirmed 12/23/20 Last Taken 12/22/20] aspirin 81 mg PO QDAY 12/20/20 [History Confirmed 12/23/20 Last Taken Unknown] donepezil 10 mg PO QDAY 12/20/20 [History Confirmed 12/23/20 Last Taken 0 12/21/20] isosorbide mononitrate 30 mg PO QAM 12/20/20 [History Confirmed 12/23/20 Last Taken 12/22/20] nitroglycerin 0.4 mg SUBLINGUAL Q5M PRN 12/20/20 [History Confirmed 12/23/20 Last Taken Unknown] gabapentin 300 mg PO TID 12/23/20 [History Confirmed 12/23/20 Last Taken Unknown] lorazepam 0.5 mg PO QHS PRN 12/23/20 [History Confirmed 12/23/20 Last Taken Unknown] amlodipine 10 mg PO DAILY #15 tab 12/27/20 [Rx Last Taken Unknown] magnesium oxide 400 mg PO DAILY #15 tab 12/27/20 [Rx Last Taken Unknown] tamsulosin 0.4 mg PO BID #15 cap 12/27/20 [Rx Last Taken Unknown] Intake & Output: Intake & Output 12/26/20 12/27/20 12/27/20 21:59 05:59 13:59 Intake Total 100 700 Output Total 450 975 Balance -350 -275 Weight 85.774 kg Intake: Oral 100 700 Output: Void Amount 450 975 Other: Urine Appearance Clear Clear Urine Color Pale Pale Urine Odor Normal Physical Exam General appearance: cooperative, no acute distress and obese HEENT: ATNC, PERRL and hearing intact (bilateral hearing aids) Neck: no JVD and no carotid bruit Respiratory: kyphosis and rhonchi Cardiology: no murmurs, no gallops, edema (trace), regular rhythm, rapid rhythm (8 beat mikey of wide complex tachycardia while I was seeing him...no sx), normal S1 and normal S2 Gastrointestinal: normoactive bowel sounds, no guarding and obese : No CVAT Integumentary: warm and dry and hyperkeratosis Neurologic: no focal deficit, no asterixis and CN 3-12 intact Musculoskeletal: no erythema, no cyanosis, no clubbing (+) paraspinal back tenderness Psychiatric: mood/affect appropriate Additional exam: No atheroembolic lesions in toes or fingers A/P Assessment and plan (1) Renal failure (ARF), acute on chronic: Status: Acute Comment: Tolerated LHC and IV contrast procedure 11/16/2020 at [facility] w/o change in GFR In late Apr, 2019 had an episode of acute renal failure with peak creatinine of 5.5 mg/dL that improved with hydration while hospitalized at [facility]. Current episode of acute renal failure has occurred over the span of 6 days with serum creatinine going from 1.9 to 6.0 mg/dL. Qualifiers: Acute renal failure type: unspecified Chronic kidney disease stage: stage 4 (severe) Qualified Code(s): N17.9 - Acute kidney failure, unspecified; N18.4 - Chronic kidney disease, stage 4 (severe) (2) Left renal stone: Status: Acute Comment: I do not see a right renal stone, just left stone with mild hydro Needs urologic intervention (3) CKD stage 4 secondary to hypertension: Status: Acute Comment: CKD 4 due to HTN and vascular disease. Non-nephrotic proteinuria. Baseline SCr ~2.0 Left renal artery stent is present (4) CAD (coronary artery disease) of bypass graft: Status: Acute Comment: Recent PCI and VADIM in SVG at [facility] Qualifiers: Elim Ira vs. transplanted heart: squaxin heart Associated angina: unspecified whether angina present Qualified Code(s): I25.810 - Atherosclerosis of coronary artery bypass graft(s) without angina pectoris (5) Dementia: Status: Acute Comment: Hold aricept while we adjust B-mati dose due to risk of bradycardia Qualifiers: Dementia type: vascular dementia Dementia behavioral disturbance: without behavioral disturbance Qualified Code(s): F01.50 - Vascular dementia without behavioral disturbance (6) Hypertensive renovascular disease: Status: Acute Comment: Left ANTON with stent Calcification of vasculature Time Spent With Patient Time: Total time spent is greater than 50% in coordination of care (as documented) at patient's floor/unit and/or counseling patient:
== END 2020-12-27 14:50 | DRG 303 ==
LOC: ED 09:22 → MEDSUR 15:00
PROVIDERS: ADMIT Internal Medicine; ATTEND Internal Medicine